=== PATIENT | female | born 1950 | race Caucasian/White ===

== ENCOUNTER → 2017-02-17 | Outpatient (CLI) | payer OTHER ==
[2015-06-29 18:40] VITALS: BP 181/93
[~2017-02-17] MED LIST: ALBU1.25 IH; AMIT10TA PO; BUDE10.2 IH; DICY10CA53 PO; FURO-68 PO; Flexeril; LANS30TA6 PO; LEVO200T5 PO; LEXAPRO20 MG PO; LISI2.5T PO; MAGN400T3 PO; NAPR500T3 PO; NATE120T PO; NITR0.4T22 SL; POTA20PA21 PO; PROAIR HFA8.5 GM IH; PROM6.25 PO
--- NOTE | 2017-02-18 08:36 | KCIC ---
Bilateral digital screening mammograms: Reason for examination: Routine screening. Comparison is made to previous studies dated back to 05/07/2008. The skin and nipples show no abnormalities. No abnormal axillary lymph nodes are seen. The breast parenchyma shows scattered fibroglandular density. (Breast density: Category B.) There appears to be a new 8.3 mm nodular parenchymal density in the upper left breast on oblique view. Recommend further evaluation with coned compression views and ultrasound. There are no other new dominant masses, suspicious calcifications or architectural distortions. Some benign calcifications are present. Impression: New 8.3 mm nodular density seen in the left oblique view superiorly. Recommend further evaluation with additional cone compression views and ultrasound. BI-RADS Category 0: Incomplete. Additional imaging is recommended. "Our facility is accredited by the [employer] Mammography [employer]." This patient's information has been entered into a reminder system for the patient to be notified with the results of her examination and a target date for the next mammogram. Electronically signed by: Kenyetta Hyde MD (02/18/2017 8:32 AM) [id number]
== END | disposition home or self-care (01) ==
LOC: KCIC DEXA 12:19
PROVIDERS: ATTEND Internal Medicine
DX: Z12.31 Encounter for screening mammogram for malignant neoplasm of breast (principal)
CPT/HCPCS: G0202; 77067

== ENCOUNTER → 2017-03-04 | Outpatient (CLI) | payer MEDICARE, OTHER ==
[2015-06-29 18:40] VITALS: BP 181/93
--- NOTE | 2017-03-05 15:46 | KCIC ---
DATE: 03/04/2017 EXAM: DIGITAL DIAGNOSTIC LT, BREAST LEFT HISTORY: Possible abnormality seen on screening COMPARISON: Screening examination 02/17/2017 This study was interpreted with the benefit of Computerized Aided Detection (CAD ). FINDINGS: Breast Density: It is unchanged relative to the screening exam A coned compression view and an ML view were obtained. No definite abnormality is seen on those images. Ultrasound was also performed. Ultrasound was performed targeted to the be resection of the breast from the 9 to the 3:00 positions. No abnormality is seen. The finding on the screening examination likely reflect summation artifact. IMPRESSION: Probable benign findings. A single MLO view of the left breast is suggested in 6 months to further document stability BI-RADS CATEGORY: 3 PROBABLE BENIGN FINDING(S-SHORT INTERVAL FOLLOW-UP SUGGESTED RECOMMENDED FOLLOW-UP: 6M 6 MONTH FOLLOW-UP PQRS compliance statement: Patient information was entered into a reminder system with a target due date 09/01/2017 for the next mammogram. Mammography is a sensitive method for finding small breast cancers, but it does not detect them all and is not a substitute for careful clinical examination. A negative mammogram does not negate a clinically suspicious finding and should not result in delay in biopsying a clinically suspicious abnormality. "Our facility is accredited by the [employer] Mammography Program." ROROD
== END | disposition home or self-care (01) ==
LOC: KCIC MAMMO 09:37
PROVIDERS: ATTEND Internal Medicine
DX: R92.8 Other abnormal and inconclusive findings on diagnostic imaging of breast (principal); R92.2 Inconclusive mammogram
CPT/HCPCS: 76641; G0206; 77065

== ENCOUNTER → 2017-03-16 | Day surgery (SDC) | payer MEDICARE, OTHER ==
[~2017-03-16] MED LIST changes: +ASPI325T8 PO; +Diazepam PO; +FERR-26 PO; +IV RINGERS,LACTATED 1000ML 1,000 ML IV SCH; -NAPR500T3 PO; +NAPR500T4 PO; +OMEP40CA5 PO; +OXYC-327 PO; +PROAIR HFA8.5 GM INH; +PROPOFOL 20 ML IV ONE
--- NOTE | 2017-03-16 08:19 | PDOC1 ---
HISTORY & PHYSICAL H&P Annalee Patiño [id number] 1950 02/10/2017 01:50 PM 06/28 [facility] OUR PATIENTS COME FIRST [address] [place] [address] Ph. [phone] Patient: Annalee Patiño Date of : 1950 Date: 02/10/2017 1:50 PM Visit Type: Consult This 66 year old female presents for H/o colorectal polyp. History of Present Illness: 1. H/o colorectal polyp Prior screening: colonoscopy. Denies risk factors. Pertinent negatives include abdominal pain, change in bowel habits, change in stool caliber, constipation, decreased appetite, diarrhea, melena, nausea, rectal bleeding, vomiting, weight gain and weight loss. Additional information: No family history of colon cancer, No family history of Crohn's/colitis, No NSAID/ASA use and Last colonoscopy 5 yrs ago and had colon polyp. INTAKE COMMENTS: Intake Comments: Nurse Note: the pt is here today to schedule a colonoscopy due to a h/o colon polyps in 2011. PROBLEM LIST: Problem Description Onset Date Acute bacterial sinusitis 07/01/2015 Acquired hypothyroidism 02/12/2010 Hyperlipidemia 02/12/2010 Depressive disorder 02/12/2010 Annual physical exam 11/22/2015 Sleep apnea 02/25/2012 Polyarthralgia 11/28/2015 Primary generalized (osteo)arthritis 11/28/2015 Diabetes mellitus without complication 02/12/2010 Morbid obesity, unspecified obesity type 11/28/2015 Immune thrombocytopenic purpura 03/30/2012 Asthma 04/12/2009 Heartburn 04/12/2009 Benign essential hypertension 04/12/2009 Gastroesophageal reflux disease 04/12/2009 Iron deficiency anemia, unspecified iron deficiency 04/29/2015 Other vitamin B12 deficiency anemia 04/29/2015 PAST MEDICAL/SURGICAL HISTORY (Detailed) Disease/disorder Onset Date Management Date Comments Cholecystectomy 08/11/2013 peptic ulcer Asthma Colonic polyps 10/27/2011 colonoscopy with biopsy 10/27/2011 COPD Coronary artery disease Diabetes Diverticulosis 10/27/2011 Gastric ulcer Hyperlipidemia Hypertension Internal hemorrhoids 10/27/2011 ITP ritaxane small hiatal hernia EGD 11/28/2013 Thyroid disease DIAGNOSTICS HISTORY: Test Ordered Interpretation Result completed COLONOSCOPY AND BIOPSY 10/27/2011 Abnormal Imp: Diverticulosis. Grade 2 Internal hemorrhoids. Polyp, (bx). BX: No patholgic diagnosis. Benign lymphoid aggregate. 10/27/2011 UPPER GI ENDOSCOPY, BIOPSY 11/21/2013 Imp: Erosive gastritis, (bx). Ulcers in the antrum. Small hiatal hernia. BX: No diagnostic abnormality. 11/28/2013 Test Ordered Ordering Comments Modifier COLONOSCOPY AND BIOPSY 10/27/2011 Gastroenterology UPPER GI ENDOSCOPY, BIOPSY 11/21/2013 Not currently . Medications (Active): Started Medication Directions Instruction Stopped 05/07/2015 ALBUTEROL SUL 1.25 MG/3 ML FIDE INHALE THE CONTENTS OF 1 VIAL VIA NEBULIZER EVERY 8 HOURS 02/02/2017 AMITRIPTYLINE HCL 10 MG TAB TAKE [1] TABLET BY MOUTH ONCE DAILY 12/28/2016 BENTYL 10 MG CAPSULE TAKE (1) CAPSULE TWICE DAILY- MORNING AND EVENING 11/20/2016 FERROUS SULFATE 325 MG TABLET TAKE ONE TABLET BY MOUTH 2 TIMES A DAY 07/23/2016 ibuprofen 600 mg tablet take 1 tablet by oral route 3 times every day with food 02/02/2017 LASIX 40MG TABLET TAKE ONE TABLET BY MOUTH DAILY. 10/23/2016 LEVOTHYROXINE 200 MCG TABLET TAKE 1 TABLET BY MOUTH DAILY. 10/23/2016 LEXAPRO 20 MG TABLET TAKE (2) TABLETS BY MOUTH ONCE DAILY. 01/19/2017 LISINOPRIL 5 MG TABLET TAKE [1] TABLET BY MOUTH ONCE DAILY 11/20/2016 MELOXICAM 7.5 MG TABLET TAKE ONE TABLET BY MOUTH 2 TIMES A DAY 02/02/2017 NITRO-DUR 0.4 MG/HR PATCH apply 1 patch by transdermal route every day remove at night for 10-12 hours 07/10/2016 NITROSTAT 0.4 MG TABLET SL TAKE DIRECTED. 01/19/[address] 40 MG CAPSULE TAKE 1 CAPSULE BY MOUTH TWICE DAILY BEFORE A MEAL 12/28/2016 oxycodone-acetaminophen 7.5 mg-325 mg tablet take 1 tablet by oral route every 6 hours as needed 06/11/[address] ER 20 MEQ TABLET TAKE (1) TABLET BY MOUTH TWICE DAILY 09/29/2016 PROAIR HFA 90 MCG INHALER INHALE 2 PUFFS BY MOUTH EVERY 4 HOURS NEEDED. 01/21/2017 STARLIX 120 MG TABLET TAKE (1) TABLET BY MOUTH TWICE DAILY 10/02/2016 Symbicort 160 mcg-4.5 mcg/actuation HFA aerosol inhaler INHALE (2) PUFFS TWICE A DAY 01/13/2017 triamcinolone acetonide 0.5 % topical cream apply by topical route 2 times every day a thin layer to the affected area(s) Allergies: Ingredient Reaction Medication Name Comment HYDROCODONE itching LATEX MEPERIDINE HCL itching, nasuea Demerol TRAMADOL itching TRAMADOL HCL itching Ultram CODEINE hallunciations PENICILLINS rash IODINATED CONTRAST- ORAL AND IV DYE REVIEW OF SYSTEMS System Neg/Pos Details Constitutional Negative Chills, fever, malaise, weight gain and weight loss. ENMT Negative Sore throat. Eyes Negative Double vision. Respiratory Negative Dyspnea and wheezing. Cardio Negative Chest pain and irregular heartbeat/palpitations. GI Positive See HPI. GI Negative Abdominal pain, change in bowel habits, change in stool caliber, constipation, decreased appetite, diarrhea, melena, nausea, see HPI, rectal bleeding and vomiting. Negative Dysuria and hematuria. Endocrine Negative Cold intolerance and heat intolerance. Psych Negative Anxiety. Integumentary Negative Hives and rash. MS Negative Joint pain. Gil/Lymph Negative Easy bleeding and easy bruising. Allergic/Immuno Negative Animals at home and food allergies. VITAL SIGNS Time BP mm/Hg Pulse /min Resp /min Temp F Ht ft Ht in Ht cm Wt lb Wt kg BMI kg/ m2 BSA m2 O2 Sat% 2:13 PM 136/80 87 98.2 5.0 4.00 162.56 261.80 118.750 44.94 95 Time Measured by 2:13 PM [facility] PHYSICAL EXAM: Exam Findings Details Constitutional Normal Well developed. Eyes Normal Conjunctiva - Right: Normal, Left: Normal. Sclera - Right: Normal, Left: Normal. Nasopharynx Normal Lips/teeth/gums - Normal. Neck Exam Normal Inspection - Normal. Thyroid gland - Normal. Respiratory Normal Inspection - Normal. Auscultation - Normal. Cardiovascular Normal Regular rate and rhythm. No murmurs, gallops, or rubs. Vascular Normal Pulses - Carotids: Normal, Femoral: Normal, Dorsalis pedis: Normal. Abdomen Normal Inspection - Normal. Anterior palpation - No guarding. No abdominal tenderness. No hepatic enlargement. No splenic enlargement. No hernia. No Ascites. Skin Normal Inspection - Normal. Extremity Normal No edema. Psychiatric Normal Oriented to time, place, person, and situation. Appropriate mood and effect. Assessment/Plan # Detail Type Description 1. Assessment History of colon polyps (Z86.010). Patient Plan schedule colonoscopy Plan Orders Further diagnostic evaluations ordered today include(s) Colonoscopy to be performed today. She is to schedule a follow-up visit with Vincent Rain MD upon completion of work-up Electronically signed by: Vincent Rain MD 02/10/2017 02:19 PM Document generated by: Vincent Rain 02/10/2017 02:19 PM Navneet Gentile MD, Family Practice; Nicko Belle MD Internal Medicine; Marcus Cardenas MD, Internal Medicine; Dejan Rain MD Internal Medicine; Vincent Rain MD, Gastroenterology; Marbin Thakur MD, Rheumatology, S. Uri Fry, Physical Medicine/Rehab JSofía Oneill APRN ------ 03/16/17 Patient seen and examined. No change in H&P VINCENT RAIN MD Mar 16, 2017 08:19
[2017-03-16 09:35] VITALS: BP 129/62
== END | disposition home or self-care (01) ==
LOC: ENDOS 08:00
PROVIDERS: ATTEND Internal Medicine Gastroenterology
DX: Z09 Encounter for follow-up examination after completed treatment for conditions other than malignant neoplasm (principal); Z87.19 Personal history of other diseases of the digestive system; K64.0 First degree hemorrhoids; K57.30 Diverticulosis of large intestine without perforation or abscess without bleeding; I25.10 Atherosclerotic heart disease of native coronary artery without angina pectoris; E78.00 Pure hypercholesterolemia, unspecified; I10 Essential (primary) hypertension; J44.9 Chronic obstructive pulmonary disease, unspecified; E66.9 Obesity, unspecified; Z68.44 Body mass index [BMI] 60.0-69.9, adult; K21.9 Gastro-esophageal reflux disease without esophagitis; Z86.39 Personal history of other endocrine, nutritional and metabolic disease; E11.9 Type 2 diabetes mellitus without complications; E03.9 Hypothyroidism, unspecified; F41.9 Anxiety disorder, unspecified; F32.9 Major depressive disorder, single episode, unspecified; Z96.653 Presence of artificial knee joint, bilateral; Z98.41 Cataract extraction status, right eye; Z98.42 Cataract extraction status, left eye; Z90.710 Acquired absence of both cervix and uterus; Z87.39 Personal history of other diseases of the musculoskeletal system and connective tissue; Z86.14 Personal history of Methicillin resistant Staphylococcus aureus infection; Z88.0 Allergy status to penicillin; Z88.8 Allergy status to other drugs, medicaments and biological substances; Z91.041 Radiographic dye allergy status; Z91.040 Latex allergy status
CPT/HCPCS: 82962; G0105; J2704

== ENCOUNTER 2017-05-16 15:45 | Inpatient (IN) | payer MEDICARE, OTHER ==
[~2017-05-16] VITALS: Ht 162.6 cm; Wt 118.5 kg
[~2017-05-16 15:45] MED LIST changes: -ASPI325T8 PO; -Diazepam PO; -IV RINGERS,LACTATED 1000ML 1,000 ML IV SCH; -PROPOFOL 20 ML IV ONE
[2017-05-16] MEDS ORDERED: IV NORMAL SALINE 1000ML BAG 1,000 ML IV SCH (16:20)
[2017-05-16] MEDS ORDERED: 0.9 % SODIUM CHLORIDE 10 ML DISP.SYRIN. IV PRN (16:30)
[2017-05-16] MEDS ORDERED: ASPIRIN CHEWABLE 81 MG TABLET. PO ONE (16:45)
[2017-05-16 16:55] LABS: BASO # 0.1 x10^3/uL (0.0-0.2); BASO % 1 % (0-3); EOS % 3 % (0-3); HEMATOCRIT 36.9 % (36.0-47.0); HEMOGLOBIN 12.6 g/dL (12.0-15.5); LYMPH # 2.8 x10^3/uL (1.0-4.8); LYMPH % 29 % (24-48); MEAN CORPUSCULAR HEMOGLOBIN 31 pg (25-35); MEAN CORPUSCULAR HGB CONC 34 g/dL (31-37); MEAN CORPUSCULAR VOLUME 92 fL (79-100); MONO % 8 % (0-9); NEUT % 58 % (31-73); PLATELET COUNT 169 x10^3/uL (140-400); RED BLOOD COUNT 4.02 x10^6/uL (3.50-5.40); RED CELL DISTRIBUTION WIDTH 14.5 % (11.5-14.5); WHITE BLOOD COUNT 9.6 x10^3/uL (4.0-11.0)
--- NOTE | 2017-05-16 17:12 | PHYS DOC ---
Past Medical History Past Medical History: Anxiety, Arthritis, Asthma, Diabetes-Type II, Hypertension, Hypothyroid Additional Past Medical Histor: ITP,RA, Past Surgical History: Cholecystectomy, Hysterectomy, Knee Replacement, Tonsillectomy, Other Additional Past Surgical Histo: HIP REPL Alcohol Use: None Drug Use: None Adult General Chief Complaint Chief Complaint: RAPID HEART RATE HPI HPI She is a pleasant 66-year-old debilitated obese female who just recently underwent hip replacement surgery within the last several weeks who presents today with shortness of breath and palpitations and chest pressure that began 2 days ago. Patient has been feeling well during her daily activities of living as well as her physical therapy postoperatively after receiving hip replacement earlier this week. Her pain is well controlled she has no complaint of leg pain or calf pain or subsequent swelling in that right leg. She had noticed decreased energy as well as shortness of breath and a chest pressure over the center portion of her chest. Although she does have a history of reflux which is also occurring at the same time describing a burning sensation in the center of her chest into her throat and the back of her mouth. She describes some mild soreness in her mouth and her lip which is also discouraging her from eating. She admits to chest pressure today and yesterday is intermittently getting progressively worse and lasting longer than normal. It makes her feel like there is a "" weight on her chest without radiation to her jaw, shoulders or back he does make it her light headed and dizzy at times. She is allergic to IV contrast and has had no other risk factors for pulmonary most other than recent surgery. She is a diabetic with a history of hypertension, hyperlipidemia and paroxysmal atrial fibrillation is only on daily aspirin under the care of Dr. Ibarra seen cardiology in the past Dr. Schrader. Reason she arrives today in our emergency department is that the home health nurse at the nursing facility noted a tachycardia at 130s with routine vital sign collection. Patient but she was not having symptoms at the time. she had her surgery on 28 April. Differential diagnosis: Acute myocardial ischemia, heart failure, cardiac tamponade, bronchospasm, pulmonary embolism, pneumothorax, pulmonary infection i.e. bronchitis or pneumonia, upper airway obstruction, anaphylaxis, aspiration , psychogenic, pulmonary contusion, toxidrome, pneumomediastinum, noncardiogenic pulmonary edema or ARDS, COPD, tuberculosis, cystic fibrosis, asthma, high altitude pulmonary edema, valvular dysfunction, cardiac dysrhythmia , stroke, neuromuscular diseases like myasthenia gravis gravis, ALS, Guillain- Abbott syndrome, metabolic acidosis to include diabetic ketoacidosis, sepsis, and obstructive disorders like massive obesity This differential were considered upon arrival she EKG reviewed at 4:17 PM time of EKG 05/16/2017 demonstrates heart rate of 68 there is a P wave there were QRS there is some sinus abnormality this is normal sinus rhythm with a left axis deviation is RR prime likely associated with incomplete right bundle- branch block with a QRS width of 102 which is normal, MI interval 150 which is normal, QTC of 469 which is borderline long. Review of Systems Review of Systems Constitutional: Denies fever or chills she does describe fatigue Eyes: Denies change in visual acuity, redness, or eye pain [] HENT: Denies nasal congestion or sore throat [] Respiratory: Denies cough does describe some shortness of breath with exertion Cardiovascular: No additional information not addressed in HPI [] GI: Denies abdominal pain, nausea, vomiting, bloody stools or diarrhea [] : Denies dysuria or hematuria [] Musculoskeletal: Denies back pain or but she does have postoperative hip pain which is expected Integument: Denies rash or skin lesions [] Neurologic: Denies headache, focal weakness or sensory changes [] Endocrine: Denies polyuria or polydipsia [] All other systems were reviewed and found to be within normal limits, except as documented in this note. Current Medications Current Medications Current Medications Medications (Trade) Dose Ordered Sig/Simin Start Time Stop Time Status Last Admin Dose Admin Acetaminophen (Tylenol) 650 mg PRN Q4HRS PRN 05/16/17 18:15 05/17/17 18:14 UNV Aspirin (Children'S Aspirin) 324 mg 1X ONCE 05/16/17 16:45 05/16/17 16:46 DC Fentanyl Citrate (Fentanyl 2ml Vial) 50 mcg PRN Q2HR PRN 05/16/17 18:15 05/17/17 18:14 UNV Lorazepam (Ativan) 1 mg 1X ONCE 05/16/17 16:45 05/16/17 16:46 DC 05/16/17 16:44 1 MG Ondansetron HCl (Zofran) 4 mg PRN Q8HRS PRN 05/16/17 18:15 05/17/17 18:14 UNV Rivaroxaban (Xarelto) 10 mg DAILYWSUP 05/16/17 18:05 Sodium Chloride 1,000 ml @ 100 mls/hr Q10H 05/16/17 18:04 05/17/17 18:03 UNV Sodium Chloride (Normal Saline Flush) 10 ml QSHIFT PRN 05/16/17 16:30 05/16/17 16:45 10 ML Allergies Allergies Allergies Coded Allergies Type Severity Reaction Last Updated Verified Iodinated Contrast- Oral and IV Dye Allergy Intermediate 03/16/17 Yes Penicillins Allergy Intermediate 03/16/17 Yes codeine Allergy Intermediate 03/16/17 Yes hydrocodone Allergy Intermediate itching 03/16/17 Yes latex Allergy Intermediate 03/16/17 Yes meperidine Allergy Intermediate 03/16/17 Yes tramadol Allergy Intermediate 03/16/17 Yes Physical Exam Physical Exam Vital signs recorded on the chart patient noted to be mildly tachypnea and hypertensive. Constitutional: Well developed, well nourished, she is morbidly obese but nontoxic in appearance nondiaphoretic not pale in appearance. HENT: Normocephalic, atraumatic, bilateral external ears normal, dry oropharynx with no evidence of candidiasis., no oral exudates, nose normal. [] Neck: Normal range of motion, no tenderness, supple, no stridor. [] Cardiovascular:Heart rate regular rhythm, no murmur does have some tenderness to palpation over the anterior chest wall not exactly reproducible on exam. Lungs & Thorax: Bilateral breath sounds clear to auscultation [] Abdomen: Bowel sounds normal, soft, no masses, no pulsatile masses. Tenderness to palpation of the epigastric region or guarding rebound or organomegaly [] Skin: Warm, dry, no erythema, no rash. [] Back: No tenderness, no CVA tenderness. [] Extremities: No tenderness, no cyanosis, no clubbing, ROM intact, no edema. No Homans sign There is a well-healed incision on the right hip that is mildly erythematous but no evidence of discharge no warmth.[] Neurologic: Alert and oriented X 3, normal motor function, normal sensory function, no focal deficits noted. [] Psychologic: This patient Is mildly anxious.. [] Current Patient Data Vital Signs Vital Signs Date Time Temp Pulse Resp B/P (MAP) Pulse Ox O2 Delivery O2 Flow Rate FiO2 05/16/17 16:10 97.6 70 22 150/70 (96) 98 Room Air 97.6 Lab Values Laboratory Tests Test 05/16/17 16:30 White Blood Count 9.6 x10^3/uL (4.0-11.0) Red Blood Count 4.02 x10^6/uL (3.50-5.40) Hemoglobin 12.6 g/dL (12.0-15.5) Hematocrit 36.9 % (36.0-47.0) Mean Corpuscular Volume 92 fL (79-100) Mean Corpuscular Hemoglobin 31 pg (25-35) Mean Corpuscular Hemoglobin Concent 34 g/dL (31-37) Red Cell Distribution Width 14.5 % (11.5-14.5) Platelet Count 169 x10^3/uL (140-400) Neutrophils (%) (Auto) 58 % (31-73) Lymphocytes (%) (Auto) 29 % (24-48) Monocytes (%) (Auto) 8 % (0-9) Eosinophils (%) (Auto) 3 % (0-3) Basophils (%) (Auto) 1 % (0-3) Neutrophils # (Auto) 5.6 x10^3uL (1.8-7.7) Lymphocytes # (Auto) 2.8 x10^3/uL (1.0-4.8) Monocytes # (Auto) 0.8 x10^3/uL (0.0-1.1) Eosinophils # (Auto) 0.3 x10^3/uL (0.0-0.7) Basophils # (Auto) 0.1 x10^3/uL (0.0-0.2) D-Dimer (Solange) 3.92 ug/mlFEU (0.00-0.50) H Sodium Level 140 mmol/L (136-145) Potassium Level 3.3 mmol/L (3.5-5.1) L Chloride Level 103 mmol/L (98-107) Carbon Dioxide Level 27 mmol/L (21-32) Anion Gap 10 (6-14) Blood Urea Nitrogen 12 mg/dL (7-20) Creatinine 0.9 mg/dL (0.6-1.0) Estimated GFR (Cockcroft-Gault) 62.8 Glucose Level 151 mg/dL (70-99) H Calcium Level 8.6 mg/dL (8.5-10.1) Magnesium Level 1.7 mg/dL (1.8-2.4) L Total Bilirubin 0.4 mg/dL (0.2-1.0) Direct Bilirubin 0.1 mg/dL (0.0-0.2) Aspartate Amino Transferase (AST) 53 U/L (15-37) H Alanine Aminotransferase (ALT) 34 U/L (14-59) Alkaline Phosphatase 122 U/L (46-116) H Creatine Kinase 88 U/L (26-192) Creatine Kinase MB (Mass) < 0.5 ng/mL (0.0-3.6) Creatine Kinase MB Relative Index 0.6 % (0-4) HA-Txc-U-Type Natriuretic Peptide 150 pg/mL (0-124) H Total Protein 7.1 g/dL (6.4-8.2) Albumin 3.0 g/dL (3.4-5.0) L Lipase 158 U/L (73-393) Thyroid Stimulating Hormone (TSH) 3.458 uIU/mL (0.358-3.74) Laboratory Tests 05/16/17 16:30 Laboratory Tests 05/16/17 16:30 EKG EKG [] Radiology/Procedures Radiology/Procedures [] [facility] [address] [place] [address] IMAGING REPORT Signed PATIENT: MILTON COMBS ACCOUNT: [id number] : 1950 LOCATION: ER AGE: 66 SEX: F EXAM STATUS: REG ER ORD. PHYSICIAN: GEO AKHTAR MD REASON: palpitations PROCEDURE: PORTABLE CHEST 1V AP PORTABLE CHEST Clinical Indication: palpitations. Comparison: Two-view chest 08/09/2013. Findings: The cardiomediastinal silhouette is normal. Lungs are clear. There is no pneumothorax. No pleural effusion is appreciated. There is no acute bone abnormality. Degenerative endplate spurring in the thoracic spine. IMPRESSION: No acute cardiopulmonary process. DICTATED and SIGNED BY: CARLOS DE LA O MD DATE: 05/16/17 [id number] CC: GEO AKHTAR MD; MARCUS IBARRA MD ~ Course & Med Decision Making Course & Med Decision Making Pertinent Labs and Imaging studies reviewed. (See chart for details) she presented with shortness of breath approximately 19 days after surgery for hip. She's been relatively debilitated but noted shortness of breath and chest pressure last several days as got progressively worse. Her general risk using the PERC rule and she fails for several reasons Criteria: Age < than 50 years Heart rate < 100 Oxygen saturation > 95% No hemoptysis No estrogen use No prior DVT or PE No unilateral leg swelling No surgery or trauma requiring hospitalization within the prior 4 weeks Respiratory evaluation patient's troponin was negative, primary EKG read upon arrival demonstrated no acute coronary ischemia or right-sided heart strain, patient's chest x-ray reviewed by me read by me AP chest timed 4:32 PM demonstrates no cardiac megaly, no pleural infiltrate, pleural effusion or significant aortic calcification. CBC is normal, CMP is unremarkable, patient's d-dimer is markedly elevated at 3.92 Risk factors for pulmonary most some patient will be set up for VQ scan. It is unfortunate that I will take anywhere from 3-5 hours to get the study completed. Patient's primary care physician was called to discuss case and help with disposition. Patient was amenable to a short evaluation and stay in the hospital to facilitate treatment. at the bedside was very reluctant to take patient home as for a happy to have her admitted this sake of having his direct studies taking care of. Laboratory Tests Test 05/16/17 16:30 White Blood Count 9.6 x10^3/uL (4.0-11.0) Red Blood Count 4.02 x10^6/uL (3.50-5.40) Hemoglobin 12.6 g/dL (12.0-15.5) Hematocrit 36.9 % (36.0-47.0) Mean Corpuscular Volume 92 fL (79-100) Mean Corpuscular Hemoglobin 31 pg (25-35) Mean Corpuscular Hemoglobin Concent 34 g/dL (31-37) Red Cell Distribution Width 14.5 % (11.5-14.5) Platelet Count 169 x10^3/uL (140-400) Neutrophils (%) (Auto) 58 % (31-73) Lymphocytes (%) (Auto) 29 % (24-48) Monocytes (%) (Auto) 8 % (0-9) Eosinophils (%) (Auto) 3 % (0-3) Basophils (%) (Auto) 1 % (0-3) Neutrophils # (Auto) 5.6 x10^3uL (1.8-7.7) Lymphocytes # (Auto) 2.8 x10^3/uL (1.0-4.8) Monocytes # (Auto) 0.8 x10^3/uL (0.0-1.1) Eosinophils # (Auto) 0.3 x10^3/uL (0.0-0.7) Basophils # (Auto) 0.1 x10^3/uL (0.0-0.2) D-Dimer (Solange) 3.92 ug/mlFEU (0.00-0.50) Sodium Level 140 mmol/L (136-145) Chloride Level 103 mmol/L (98-107) Carbon Dioxide Level 27 mmol/L (21-32) Anion Gap 10 (6-14) Blood Urea Nitrogen 12 mg/dL (7-20) Estimated GFR (Cockcroft-Gault) 62.8 Glucose Level 151 mg/dL (70-99) Calcium Level 8.6 mg/dL (8.5-10.1) Total Bilirubin 0.4 mg/dL (0.2-1.0) Direct Bilirubin 0.1 mg/dL (0.0-0.2) Aspartate Amino Transf (AST/SGOT) 53 U/L (15-37) Alkaline Phosphatase 122 U/L (46-116) Creatine Kinase 88 U/L (26-192) Creatine Kinase MB (Mass) < 0.5 ng/mL (0.0-3.6) Creatine Kinase MB Relative Index 0.6 % (0-4) Troponin I Quantitative < 0.017 ng/mL (0.000-0.055) Total Protein 7.1 g/dL (6.4-8.2) Albumin 3.0 g/dL (3.4-5.0) Lipase 158 U/L (73-393) Pool Hand note: Dr. Ibarra Pool Hand called at of the service 6:00 pm Consult called back at 6:00 pm Discussed the case I presented and they agreed with admission. Time of acceptance 6:00 pm he agrees with patient's complaints. History that VQ scan be very appropriate we agreed to start Xaleto and have both pulmonary services and cardiology services evaluate the patient for etiologies of her shortness of breath. Given her is factors for acute coronary syndrome patient also has a heart score of 6 which are require more aggressive management. "I have assessed this patient clinically and believe that their condition requires an admission to the hospital. After consulting the admitting physician about this case, they have asked that I admit this patient to their service as an inpatient based on the clinical presentation and my impression." Dragon Disclaimer Dragon Disclaimer This electronic medical record was generated, in whole or in part, using a voice recognition dictation system. Departure Departure Impression: Primary Impression: Benign essential hypertension Additional Impressions: Diabetes mellitus Dyspnea Disposition: ADMITTED INPATIENT Admitting Physician: Marcus Ibarra Condition: GUARDED Referrals: MARCUS IBARRA MD (PCP) Problem Qualifiers GEO AKHTAR MD May 16, 2017 17:12
[2017-05-16 17:15] LABS: CALCIUM 8.6 mg/dL (8.5-10.1); CREATININE 0.9 mg/dL (0.6-1.0); GFR 62.8; POTASSIUM 3.3 mmol/L (3.5-5.1)
[2017-05-16 17:19] LABS: DIRECT BILIRUBIN 0.1 mg/dL (0.0-0.2); MAGNESIUM 1.7 mg/dL (1.8-2.4); TOTAL BILIRUBIN 0.4 mg/dL (0.2-1.0); TOTAL PROTEIN 7.1 g/dL (6.4-8.2)
[2017-05-16 17:24] LABS: CREATINE KINASE 88 U/L (26-192)
[2017-05-16 17:25] LABS: CKMB MASS < 0.5 ng/mL (0.0-3.6)
[2017-05-16] MEDS ORDERED: RIVAROXABAN 10 MG TABLET. PO SCH (18:05)
[2017-05-16] MEDS ORDERED: ACETAMINOPHEN 325 MG TABLET. PO PRN (18:15)
[2017-05-16] MEDS ORDERED: fentaNYL PF VIAL 100 MCG/2 ML VIAL IV PRN (18:15)
[2017-05-16] MEDS ORDERED: ONDANSETRON PF 4 MG/2 ML VIAL. IV PRN (18:15)
[2017-05-16] MEDS: IV NORMAL SALINE 1000ML BAG 1,000 ML IV SCH (19:27)
[2017-05-16 19:30] VITALS: BP 131/70
--- NOTE | 2017-05-16 20:37 | RAD ---
Ventilation/perfusion lung scan COMPARISON: Chest x-ray May 16, 2017. HISTORY: Shortness of breath. TECHNIQUE: 6 mCi technetium 99m macroaggregated albumin intravenous. 15 mCi xenon-133 inhaled. FINDINGS: Single moderate perfusion defect of the left upper lobe apicoposterior segment on the LPO projection only, it is uncertain if this is matched or mismatched as it isn't apparent on the anterior or posterior perfusion projections, and this is not apparent on the ventilation images which are only anterior and posterior. These findings with a negative chest x-ray are intermediate probability for pulmonary artery embolus using the modified PIOPED criteria. IMPRESSION: Intermediate probability for pulmonary artery embolus. Electronically signed by: Alec Hutchinson MD (05/16/2017 8:34 PM) [facility]
[2017-05-16] MEDS ORDERED: POTASSIUM CHLORIDE 20 MEQ TABLET.ER. PO ONE ×2 (21:30)
[2017-05-16] MEDS ORDERED: ASPI325T8 PO (21:38)
[2017-05-16] MEDS ORDERED: Diazepam PO (21:38)
[2017-05-16 23:00] VITALS: BP 130/63
[2017-05-17 03:00] VITALS: BP 119/58
[2017-05-17] MEDS: IV NORMAL SALINE 1000ML BAG 1,000 ML IV SCH ×2 (06:00→16:27)
--- NOTE | 2017-05-17 06:14 | EKG ---
[facility] [address] [place] [address] Test Date: 2017-05-16 Test Time: 16:17:00 Pat Name: MILTON COMBS Department: Room: 572 1 Gender: F Head Butler: : 1950 Requested By: GEO AKHTAR Order Number: [id number] Reading MD: Russel Everett MD Measurements Intervals [place] Rate: 68 P: 28 TX: 150 QRS: -26 QRSD: 102 T: -6 QT: 436 QTc: 469 Interpretive Statements SINUS RHYTHM LEFTWARD AXIS RBBB NON-SPECIFIC ST/T CHANGES Electronically Signed On 05-18-2017 12:32:59 [employer] PLANT MA[employer]GER by Russel Everett MD
[2017-05-17 06:34] LABS: BASO # 0.1 x10^3/uL (0.0-0.2); BASO % 1 % (0-3); EOS % 4 % (0-3); HEMATOCRIT 34.1 % (36.0-47.0); HEMOGLOBIN 11.2 g/dL (12.0-15.5); LYMPH # 2.5 x10^3/uL (1.0-4.8); LYMPH % 31 % (24-48); MEAN CORPUSCULAR HEMOGLOBIN 31 pg (25-35); MEAN CORPUSCULAR HGB CONC 33 g/dL (31-37); MEAN CORPUSCULAR VOLUME 93 fL (79-100); MONO % 9 % (0-9); NEUT % 55 % (31-73); PLATELET COUNT 137 x10^3/uL (140-400); RED BLOOD COUNT 3.68 x10^6/uL (3.50-5.40)
[2017-05-17 06:37] LABS: CALCIUM 8.2 mg/dL (8.5-10.1); CREATININE 0.8 mg/dL (0.6-1.0)
[2017-05-17 07:15] VITALS: BP 119/66
--- NOTE | 2017-05-17 09:36 | PDOC2 ---
MAHNAZ THOMAS EMPLOYMENT TRAINING SPECIALIST 05/17/17 0936: CARDIAC CONSULT DATE OF CONSULT Date of Consult DATE: 05/17/17 TIME: 09:20 REASON FOR CONSULT Reason for Consult: Chest pain REFERRING PHYSICIAN Referring Physician: Glo SOURCE Source: Chart review, Patient HISTORY OF PRESENT ILLNESS HISTORY OF PRESENT ILLNESS This is a pleasant 66 yo female admitted for complains of fast heart rate, and chest pressure. Reports that she just had a RTHA at [facility]. After surgery she did develop AFIB and was treated in ICU over there. She tolerated the procedure well accdg to her. In the last week she has been having dizzy spells and noted dyspnea more that usual particularly with exertion. Wednesday her home health nurse noted her with fast HR in the 130s and with that she SOA and was having some chest pressure. She was placed on cardizem and ASA for her AFIB. Presently she is doing ok and denies any further recurrence of fast HR. 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 Denies any nausea, jaw or arm pain. Denies any passing out. PAST MEDICAL HISTORY Cardiovascular: AFIB, HTN, Hyperlipidemia Pulmonary: Asthma, COPD (second hand smoking), Other (JOHANA: CPAP not opertational) CENTRAL NERVOUS SYSTEM: Other (No pertinent history) Heme/Onc: Other (ITP) Hepatobiliary: No pertinent hx Psych: Anxiety Musculoskeletal: Osteoarthritis Rheumatologic: No pertinent hx Infectious disease: Other (MRSA) ENT: Other (cataract) Renal/: No pertinent hx Endocrine: Hypothyroidism (acquired) Dermatology: No pertinent hx PAST SURGICAL HISTORY Past Surgical History: Arthroscopy (left wrist), Cholecystectomy, Cataract Removal, Total hip replacement (right), Total knee replacement (bilateral), Hysterectomy, Other (previous portacath) FAMILY HISTORY Family History: Coronary Artery Disease (mother and father), Diabetes (mother) SOCIAL HISTORY Smoke: No ALCOHOL: none Drugs: None Lives: with Family CURRENT MEDICATIONS CURRENT MEDICATIONS Current Medications Medications (Trade) Dose Ordered Sig/Simin Route PRN Reason Start Time Stop Time Status Last Admin Dose Admin Lorazepam (Ativan) 1 mg 1X ONCE IV 05/16/17 16:45 05/16/17 16:46 DC 05/16/17 16:44 Sodium Chloride 1,000 ml @ 1,000 mls/hr Q1H IV 05/16/17 16:20 05/16/17 17:19 DC 05/16/17 16:44 Sodium Chloride (Normal Saline Flush) 10 ml QSHIFT PRN IV AFTER MEDS AND BLOOD DRAWS 05/16/17 16:30 05/16/17 16:45 Rivaroxaban (Xarelto) 10 mg DAILYWSUP PO 05/16/17 18:05 05/16/17 21:10 DC 05/16/17 19:27 Sodium Chloride 1,000 ml @ 100 mls/hr Q10H IV 05/16/17 18:04 05/17/17 18:03 05/17/17 06:00 Enoxaparin Sodium (Lovenox 100mg Syringe) 100 mg 1X ONCE SQ 05/16/17 21:30 05/16/17 21:31 DC 05/16/17 21:30 Potassium Chloride (Klor-Con) 20 meq 1X ONCE PO 05/16/17 21:30 05/16/17 21:31 DC 05/16/17 21:30 Potassium Chloride (Klor-Con) 40 meq 1X ONCE PO 05/16/17 21:30 05/16/17 21:31 DC 05/16/17 21:30 ALLERGIES ALLERGIES: Coded Allergies: Iodinated Contrast- Oral and IV Dye (Verified Allergy, Intermediate, ) Penicillins (Verified Allergy, Intermediate, 03/16/17) codeine (Verified Allergy, Intermediate, 03/16/17) hydrocodone (Verified Allergy, Intermediate, itching, 03/16/17) latex (Verified Allergy, Intermediate, 03/16/17) meperidine (Verified Allergy, Intermediate, 03/16/17) tramadol (Verified Allergy, Intermediate, 03/16/17) ROS Review of System 14 point ROS evaluated with pertinent positives noted per HPI PHYSICAL EXAM General: Alert, Oriented X3, Cooperative, No acute distress HEENT: Atraumatic, Mucous membr. moist/pink Lungs: Clear to auscultation, Normal air movement Heart: Regular rate (SR), Normal S1, Normal S2, Other (2/6 sytolic murmur to LLS border) Extremities: No cyanosis, Other (trace to 1+ bilateral LE pitting edema) Skin: No breakdown, No significant lesion Neuro: Normal speech, Sensation intact Psych/Mental Status: Mental status NL, Mood NL MUSCULOSKELETAL: Osteoarthritic changes both hands VITALS VITALS Vital Signs Date Time Temp Pulse Resp B/P (MAP) Pulse Ox O2 Delivery O2 Flow Rate FiO2 05/17/17 07:15 97.6 74 16 119/66 (83) 96 Room Air 97.6 LABS Lab: Laboratory Tests Test 05/16/17 16:30 05/17/17 00:15 05/17/17 05:50 White Blood Count 9.6 x10^3/uL (4.0-11.0) 8.0 x10^3/uL (4.0-11.0) Red Blood Count 4.02 x10^6/uL (3.50-5.40) 3.68 x10^6/uL (3.50-5.40) Hemoglobin 12.6 g/dL (12.0-15.5) 11.2 g/dL (12.0-15.5) Hematocrit 36.9 % (36.0-47.0) 34.1 % (36.0-47.0) Mean Corpuscular Volume 92 fL (79-100) 93 fL (79-100) Mean Corpuscular Hemoglobin 31 pg (25-35) 31 pg (25-35) Mean Corpuscular Hemoglobin Concent 34 g/dL (31-37) 33 g/dL (31-37) Red Cell Distribution Width 14.5 % (11.5-14.5) 15.0 % (11.5-14.5) Platelet Count 169 x10^3/uL (140-400) 137 x10^3/uL (140-400) Neutrophils (%) (Auto) 58 % (31-73) 55 % (31-73) Lymphocytes (%) (Auto) 29 % (24-48) 31 % (24-48) Monocytes (%) (Auto) 8 % (0-9) 9 % (0-9) Eosinophils (%) (Auto) 3 % (0-3) 4 % (0-3) Basophils (%) (Auto) 1 % (0-3) 1 % (0-3) Neutrophils # (Auto) 5.6 x10^3uL (1.8-7.7) 4.4 x10^3uL (1.8-7.7) Lymphocytes # (Auto) 2.8 x10^3/uL (1.0-4.8) 2.5 x10^3/uL (1.0-4.8) Monocytes # (Auto) 0.8 x10^3/uL (0.0-1.1) 0.7 x10^3/uL (0.0-1.1) Eosinophils # (Auto) 0.3 x10^3/uL (0.0-0.7) 0.3 x10^3/uL (0.0-0.7) Basophils # (Auto) 0.1 x10^3/uL (0.0-0.2) 0.1 x10^3/uL (0.0-0.2) D-Dimer (Solange) 3.92 ug/mlFEU (0.00-0.50) Sodium Level 140 mmol/L (136-145) 141 mmol/L (136-145) Potassium Level 3.3 mmol/L (3.5-5.1) 4.0 mmol/L (3.5-5.1) Chloride Level 103 mmol/L (98-107) 106 mmol/L (98-107) Carbon Dioxide Level 27 mmol/L (21-32) 27 mmol/L (21-32) Anion Gap 10 (6-14) 8 (6-14) Blood Urea Nitrogen 12 mg/dL (7-20) 11 mg/dL (7-20) Creatinine 0.9 mg/dL (0.6-1.0) 0.8 mg/dL (0.6-1.0) Estimated GFR (Cockcroft-Gault) 62.8 72.0 Glucose Level 151 mg/dL (70-99) 113 mg/dL (70-99) Calcium Level 8.6 mg/dL (8.5-10.1) 8.2 mg/dL (8.5-10.1) Magnesium Level 1.7 mg/dL (1.8-2.4) Total Bilirubin 0.4 mg/dL (0.2-1.0) Direct Bilirubin 0.1 mg/dL (0.0-0.2) Aspartate Amino Transf (AST/SGOT) 53 U/L (15-37) Alanine Aminotransferase (ALT/SGPT) 34 U/L (14-59) Alkaline Phosphatase 122 U/L (46-116) Creatine Kinase 88 U/L (26-192) Creatine Kinase MB (Mass) < 0.5 ng/mL (0.0-3.6) Creatine Kinase MB Relative Index 0.6 % (0-4) Troponin I Quantitative < 0.017 ng/mL (0.000-0.055) < 0.017 ng/mL (0.000-0.055) < 0.017 ng/mL (0.000-0.055) MV-Vnw-C-Type Natriuretic Peptide 150 pg/mL (0-124) Total Protein 7.1 g/dL (6.4-8.2) Albumin 3.0 g/dL (3.4-5.0) Lipase 158 U/L (73-393) Thyroid Stimulating Hormone (TSH) 3.458 uIU/mL (0.358-3.74) ASSESSMENT/PLAN ASSESSMENT/PLAN 1. Chest pain: possibly induced by PE and AFIB RVR. Troponin series normal. 2. Tachyarrhythmia: previous new onset AFIB after RTHA. SR. No evidence of AFIB RVR so far. 3. Dyspnea: mainly on exertion 4. Possible PE: intermediate probability with V/Q with recent RTHA. EKG noted with RVH. Likely potentiating symptom as noted above. 5. COPD/JOHANA/Asthma: CPAP not operational 6. HTN: controlled 7. DM2/HLP 8. Hx of ITP 9. IV contrast allergy 10. Hypothyroidism Recommendations 1. Repeat TTE. Venous doppler. Consult pulmonary 2. Defer further anticoagulation to pulmonary 3. Unknown dose for cardizem will place on low dose for now and mornitor rhythm and BP trend 4. Would recommend for event monitor. Problems: ELIDA MARQUEZ MD 05/17/17 3833: CARDIAC CONSULT ALLERGIES ALLERGIES: Coded Allergies: Iodinated Contrast- Oral and IV Dye (Verified Allergy, Intermediate, ) Penicillins (Verified Allergy, Intermediate, 03/16/17) codeine (Verified Allergy, Intermediate, 03/16/17) hydrocodone (Verified Allergy, Intermediate, itching, 03/16/17) latex (Verified Allergy, Intermediate, 03/16/17) meperidine (Verified Allergy, Intermediate, 03/16/17) tramadol (Verified Allergy, Intermediate, 03/16/17) ASSESSMENT/PLAN ASSESSMENT/PLAN Patient seen and examined. Agree with CONDENSER CLEANER's assessment and plan. Chest pain with atypical features. Myocardial infarction has been ruled out. Patient tolerated major surgery recently very well. Doubt ACS. Patient was diagnosed with new onset atrial fibrillation and postop setting recently. Maintaining sinus rhythm. 2-D echo showed LVEF 50%. Pulmonary team consulted for possible PE. Thank you for your consultation. Problems: MAHNAZ THOMAS APRN May 17, 2017 09:36 EILDA MARQUEZ MD May 17, 2017 16:53
[2017-05-17] MEDS: RIVAROXABAN 15 MG TABLET. PO SCH ×2 (10:08→16:27)
--- NOTE | 2017-05-17 10:29 | PDOC ---
Provider Note Provider Note Pt seen.H&P dictated. #[id number] HANNAH IBARRA MD May 17, 2017 10:29
[2017-05-17] MEDS ORDERED: oxyCODONE/APAP 7.5/325 1 TAB TABLET PO PRN (10:30)
[2017-05-17] MEDS ORDERED: NON FORMULARY ITEM (Albuterol Sulfate (Proair Hfa Inhaler) 1 PUFF) INH PRN (10:30)
[2017-05-17] MEDS ORDERED: DEXTROSE 50% 25 GM / 50ML DISP.SYRIN. IV PRN (10:30)
[2017-05-17] MEDS ORDERED: ALBUTEROL SULFATE 2.5 MG/3 ML NEBU. NEB PRN (10:45)
[2017-05-17 10:46] VITALS: BP 122/68
[2017-05-17] MEDS ORDERED: ASPIRIN 325 MG TABLET PO SCH (11:00)
--- NOTE | 2017-05-17 11:04 | CARD ---
APPROVED REPORT EXAM: Two-dimensional and M-mode echocardiogram with Doppler and color Doppler. Other Information Quality : Good Technically limited study due to body habitus. INDICATION Chest Pain Possible Pulmonary Edema 2D DIMENSIONS RVDd2.4 (2.9-3.5cm)Left Atrium(2D)3.3 (1.6-4.0cm) IVSd0.9 (0.7-1.1cm)Aortic Root(2D)3.3 (2.0-3.7cm) LVDd4.8 (3.9-5.9cm)LVOT Diameter2.2 (1.8-2.4cm) PWd0.9 (0.7-1.1cm)LVDs3.1 (2.5-4.0cm) FS (%) 25.0 %SV70.8 ml LVEF(%)55.0 (>50%) Aortic Valve AoV Peak Hector.147.3cm/sAoV VTI28.7cm AO Peak GR.8.7mmHgLVOT VTI 25.33cm AO Mean GR.4mmHgAVA (VTI)3.30cm2 Mitral Valve MV E Htncnwgd120.8cm/sMV DECEL SULR291oj MV A Imwwmgtn73.0cm/sE/A Ratio1.3 TDI Lateral E' P. V11.97cm/sMedial E' P. V9.07cm/s E/Lateral E'9.4E/Medial E'12.4 Tricuspid Valve TR P. Uzxzvntr672gt/sRAP BXITQVAO7juMl TR Peak Gr.65gwHhMGHT26jeUj Pulmonary Vein S1 Mszcziiv61.7cm/sS2 Xlzflbra22.73cm/s D2 Xyupagpa05.7cm/s LEFT VENTRICLE The left ventricle is normal size. There is normal left ventricular wall thickness. Low normal LV sys tolic function. Ejection fraction 50% There is grossly normal segmental wall motion. The anterior and lateral castrejon are not well visualized. Transmitral Doppler flow pattern is Grade II-pseudonormal kim ling dynamics. RIGHT VENTRICLE The right ventricle is normal size. The right ventricular systolic function is normal. ATRIA The left atrium size is normal. The right atrium size is normal. The interatrial septum is intact wit h no evidence for an atrial septal defect or patent foramen ovale as noted on 2-D or Doppler imaging. AORTIC VALVE Not well visualized Doppler and Color Flow revealed no significant aortic regurgitation. There is no significant aortic valvular stenosis. MITRAL VALVE Not well visualized. There is no evidence of mitral valve prolapse. There is no mitral valve stenosis . Doppler and Color Flow revealed no mitral valve regurgitation noted. TRICUSPID VALVE The tricuspid valve is normal in structure and function. Doppler and Color Flow revealed physiologica l tricuspid regurgitation. The PA pressure was estimated at 26 mmHg. There is no tricuspid valve sten osis. PULMONIC VALVE The pulmonary valve is normal in structure and function. Doppler and Color Flow revealed no pulmonic valvular regurgitation. There is no pulmonic valvular stenosis. GREAT VESSELS The aortic root is normal in size. The ascending aorta is normal in size. The IVC is normal in size a nd collapses >50% with inspiration. PERICARDIAL EFFUSION There is no evidence of significant pericardial effusion. Critical Notification Critical Value: No <Conclusion> Low normal LV systolic function. Ejection fraction 50% There is grossly normal segmental wall motion. The anterior and lateral castrejon are not well visualized . Technically difficult study.
--- NOTE | 2017-05-17 11:09 | HP ---
ADMIT DATE: 05/16/2017 DATE OF ADMISSION: 05/16/2017. ATTENDING PHYSICIAN: Dr. Cardenas. REASON FOR ADMISSION TO THE HOSPITAL: Shortness of breath, possible pulmonary embolism. The patient had a recent right hip replacement 3 weeks ago at [facility]. HISTORY OF PRESENT ILLNESS: The patient is a 66-year-old female who was having palpitation, short of breath, was seen by home health nurse. She was referred to have a heart rate of 130, was sent to the Emergency Room for evaluation. THE PATIENT IS ALLERGIC TO CONTRAST, had a VQ scan shows intermediate possibility for pulmonary embolism, was given a dose of Lovenox and started on Xarelto. PAST MEDICAL HISTORY: She has a history of chronic obstructive pulmonary disease and also ITP, hypertension, recently when she had a right hip replacement 3-4 weeks ago, at [facility], she was found to have paroxysmal atrial fibrillation, was started on aspirin and Cardizem as per the patient. Past medical history of paroxysmal atrial fibrillation, hypertension, hyperlipidemia, hypothyroidism, chronic obstructive pulmonary disease, obstructive sleep apnea on CPAP, ITP in the past, arthritis, cataract surgery, hypothyroidism. PAST SURGICAL HISTORY: Recently had a right hip replacement, bilateral knee replacements, cataract surgery, gallbladder surgery. FAMILY HISTORY: CAD in the mother and father, diabetes in the mother. SOCIAL HISTORY: Denies smoking, but she worked with [employer] smoke. No alcohol or drug abuse. ALLERGIES: TO CONTRAST. SHE HAS HIVES, PENICILLIN, CODEINE, HYDROCODONE, LATEX, DEMEROL AND TRAMADOL. MEDICATIONS AT HOME: Amitriptyline 10 mg daily, aspirin 325 daily, Bentyl 10 mg twice a day, iron 325 daily, Lasix 40 mg daily, Imdur 30 mg daily, magnesium 400 mg twice a day, naproxen 500 mg twice a day, nitroglycerin sublingual, oxycodone 7.5 q. 6 hours, albuterol nebulizer q. 8 hours, ProAir inhaler, Symbicort twice a day, Lexapro 20 mg daily, levothyroxine 200 mcg daily, mg twice a day, omeprazole 40 mg daily, potassium 20 mEq daily, diazepam p.r.n. REVIEW OF SYSTEMS: CARDIAC: Has some palpitation. Short of breath. GASTROINTESTINAL: No nausea or vomiting. NEUROLOGICAL: No weakness. The rest of the 14-system was reviewed and negative. PHYSICAL EXAMINATION: GENERAL: The patient under distress. VITAL SIGNS: Temperature 97, pulse 70, respirations 20, blood pressure 150/70, 98% on room air. HEENT: Head is atraumatic. Pupils equal. Oral cavity: No congestion. NECK: Scar of prior surgery. CHEST: Symmetrical. Central obesity. CARDIOVASCULAR: S1, S2. LUNGS: No wheezing. ABDOMEN: Soft, obese. No mass palpable. EXTERNAL GENITALIA: No [place]. RECTAL: Deferred. EXTREMITIES: No calf tenderness or edema. He has bilateral knee replacements, has surgical scar in the right hip from replacement. Nontender. NEUROLOGIC: No focal noted. LABORATORY DATA: Shows a white cell count of 9, hemoglobin 12, platelets 169. Electrolytes show sodium 140, potassium 3.3, chloride 103, bicarbonate 27, BUN 12, creatinine 0.9, glucose 151, magnesium 1.1. LFTs were normal and D-dimer was 3.9, was high. Chest x-ray negative and a V/Q scan is intermediate possibility for pulmonary artery embolism. FINAL IMPRESSION: 1. Shortness of breath with palpitations. V/Q scan is moderate for pulmonary embolism. 2. Recent right hip replacement 3 weeks ago. 3. Paroxysmal atrial fibrillation. 4. Hypertension. 5. Hyperlipidemia. 6. Diabetes. 7. Hypothyroidism. 8. Obstructive sleep apnea, on CPAP. PLAN: At this time, was admit to hospital, will get a venous Doppler, Pt was given a dose of Lovenox will start on po Xarelto from tomorrow. Cardiology is consulted. We will have pulmonary consult . ALLERGY TO CONTRAST. Awaiting for the pulmonary to see if we can proceed with arteriogram.ECHO and may be out pt holter. HANNAH CARDENAS MD DR: NAZANIN/katie JOB#: [id number] / [id number] Hannah Moreno MD MTDD
[2017-05-17] MEDS: INSULIN ASPART 300 UNITS/3 ML INSULN.PEN SQ SCH ×2 (12:00→17:00)
[2017-05-17] MEDS ORDERED: ANTI-COAG MONITOR BY PHARMACY. MC PRN (12:30)
[2017-05-17] MEDS: FUROSEMIDE 40 MG TABLET. PO SCH (13:18)
[2017-05-17] MEDS: MAGNESIUM OXIDE 400 MG TABLET PO SCH ×2 (13:19→20:11)
[2017-05-17] MEDS: LEVOTHYROXINE 100 MCG TABLET PO SCH (13:19)
[2017-05-17] MEDS: NAPROXEN 500 MG TABLET PO SCH ×2 (13:19→20:11)
[2017-05-17] MEDS: DICYCLOMINE HCL 10 MG CAPSULE PO SCH ×2 (13:19→20:10)
[2017-05-17] MEDS: CITALOPRAM 20 MG TABLET. PO SCH (13:19)
[2017-05-17] MEDS: FERROUS SULFATE 325 MG TABLET. PO SCH (13:20)
[2017-05-17] MEDS: LANSOPRAZOLE 30 MG TAB.RAP.DR PO SCH (13:20)
[2017-05-17] MEDS ORDERED: NON FORMULARY ITEM (Albuterol Sulfate (Albuterol Sulfate Neb Soln) 1.25 MG) IH SCH (14:00)
[2017-05-17] MEDS: ALBUTEROL SULFATE 2.5 MG/3 ML NEBU. NEB SCH ×4 (14:00→23:30)
[2017-05-17 15:20] VITALS: BP 125/78
[2017-05-17] MEDS: REPAGLINIDE 0.5 MG TABLET PO SCH (16:27)
--- NOTE | 2017-05-17 18:11 | PDOC ---
PULMONARY PROGRESS NOTES Vitals Vital Signs Date Time Temp Pulse Resp B/P (MAP) Pulse Ox O2 Delivery O2 Flow Rate FiO2 05/17/17 15:20 98.6 69 12 125/78 (94) 94 Room Air 98.6 Labs Laboratory Tests Test 05/16/17 16:30 05/16/17 21:30 05/17/17 00:15 05/17/17 05:50 White Blood Count 9.6 x10^3/uL (4.0-11.0) 8.0 x10^3/uL (4.0-11.0) Red Blood Count 4.02 x10^6/uL (3.50-5.40) 3.68 x10^6/uL (3.50-5.40) Hemoglobin 12.6 g/dL (12.0-15.5) 11.2 g/dL (12.0-15.5) Hematocrit 36.9 % (36.0-47.0) 34.1 % (36.0-47.0) Mean Corpuscular Volume 92 fL (79-100) 93 fL (79-100) Mean Corpuscular Hemoglobin 31 pg (25-35) 31 pg (25-35) Mean Corpuscular Hemoglobin Concent 34 g/dL (31-37) 33 g/dL (31-37) Red Cell Distribution Width 14.5 % (11.5-14.5) 15.0 % (11.5-14.5) Platelet Count 169 x10^3/uL (140-400) 137 x10^3/uL (140-400) Neutrophils (%) (Auto) 58 % (31-73) 55 % (31-73) Lymphocytes (%) (Auto) 29 % (24-48) 31 % (24-48) Monocytes (%) (Auto) 8 % (0-9) 9 % (0-9) Eosinophils (%) (Auto) 3 % (0-3) 4 % (0-3) Basophils (%) (Auto) 1 % (0-3) 1 % (0-3) Neutrophils # (Auto) 5.6 x10^3uL (1.8-7.7) 4.4 x10^3uL (1.8-7.7) Lymphocytes # (Auto) 2.8 x10^3/uL (1.0-4.8) 2.5 x10^3/uL (1.0-4.8) Monocytes # (Auto) 0.8 x10^3/uL (0.0-1.1) 0.7 x10^3/uL (0.0-1.1) Eosinophils # (Auto) 0.3 x10^3/uL (0.0-0.7) 0.3 x10^3/uL (0.0-0.7) Basophils # (Auto) 0.1 x10^3/uL (0.0-0.2) 0.1 x10^3/uL (0.0-0.2) D-Dimer (Solange) 3.92 ug/mlFEU (0.00-0.50) Sodium Level 140 mmol/L (136-145) 141 mmol/L (136-145) Potassium Level 3.3 mmol/L (3.5-5.1) 4.0 mmol/L (3.5-5.1) Chloride Level 103 mmol/L (98-107) 106 mmol/L (98-107) Carbon Dioxide Level 27 mmol/L (21-32) 27 mmol/L (21-32) Anion Gap 10 (6-14) 8 (6-14) Blood Urea Nitrogen 12 mg/dL (7-20) 11 mg/dL (7-20) Creatinine 0.9 mg/dL (0.6-1.0) 0.8 mg/dL (0.6-1.0) Estimated GFR (Cockcroft-Gault) 62.8 72.0 Glucose Level 151 mg/dL (70-99) 113 mg/dL (70-99) Calcium Level 8.6 mg/dL (8.5-10.1) 8.2 mg/dL (8.5-10.1) Magnesium Level 1.7 mg/dL (1.8-2.4) Total Bilirubin 0.4 mg/dL (0.2-1.0) Direct Bilirubin 0.1 mg/dL (0.0-0.2) Aspartate Amino Transf (AST/SGOT) 53 U/L (15-37) Alanine Aminotransferase (ALT/SGPT) 34 U/L (14-59) Alkaline Phosphatase 122 U/L (46-116) Creatine Kinase 88 U/L (26-192) Creatine Kinase MB (Mass) < 0.5 ng/mL (0.0-3.6) Creatine Kinase MB Relative Index 0.6 % (0-4) Troponin I Quantitative < 0.017 ng/mL (0.000-0.055) < 0.017 ng/mL (0.000-0.055) < 0.017 ng/mL (0.000-0.055) LS-Evx-W-Type Natriuretic Peptide 150 pg/mL (0-124) Total Protein 7.1 g/dL (6.4-8.2) Albumin 3.0 g/dL (3.4-5.0) Lipase 158 U/L (73-393) Thyroid Stimulating Hormone (TSH) 3.458 uIU/mL (0.358-3.74) Nasal Screen MRSA (PCR) Negative (Negative) Test 05/17/17 16:57 Glucose (Fingerstick) 107 mg/dL (70-99) Laboratory Tests Test 05/16/17 21:30 05/17/17 00:15 05/17/17 05:50 05/17/17 16:57 Nasal Screen MRSA (PCR) Negative (Negative) Troponin I Quantitative < 0.017 ng/mL (0.000-0.055) < 0.017 ng/mL (0.000-0.055) White Blood Count 8.0 x10^3/uL (4.0-11.0) Red Blood Count 3.68 x10^6/uL (3.50-5.40) Hemoglobin 11.2 g/dL (12.0-15.5) Hematocrit 34.1 % (36.0-47.0) Mean Corpuscular Volume 93 fL (79-100) Mean Corpuscular Hemoglobin 31 pg (25-35) Mean Corpuscular Hemoglobin Concent 33 g/dL (31-37) Red Cell Distribution Width 15.0 % (11.5-14.5) Platelet Count 137 x10^3/uL (140-400) Neutrophils (%) (Auto) 55 % (31-73) Lymphocytes (%) (Auto) 31 % (24-48) Monocytes (%) (Auto) 9 % (0-9) Eosinophils (%) (Auto) 4 % (0-3) Basophils (%) (Auto) 1 % (0-3) Neutrophils # (Auto) 4.4 x10^3uL (1.8-7.7) Lymphocytes # (Auto) 2.5 x10^3/uL (1.0-4.8) Monocytes # (Auto) 0.7 x10^3/uL (0.0-1.1) Eosinophils # (Auto) 0.3 x10^3/uL (0.0-0.7) Basophils # (Auto) 0.1 x10^3/uL (0.0-0.2) Sodium Level 141 mmol/L (136-145) Potassium Level 4.0 mmol/L (3.5-5.1) Chloride Level 106 mmol/L (98-107) Carbon Dioxide Level 27 mmol/L (21-32) Anion Gap 8 (6-14) Blood Urea Nitrogen 11 mg/dL (7-20) Creatinine 0.8 mg/dL (0.6-1.0) Estimated GFR (Cockcroft-Gault) 72.0 Glucose Level 113 mg/dL (70-99) Calcium Level 8.2 mg/dL (8.5-10.1) Glucose (Fingerstick) 107 mg/dL (70-99) Medications Active Scripts Medications Dose Route/Sig Max Daily Dose Days Date Category [Diazepam] Mg PO DAILY 05/16/17 Reported Aspirin 325 Mg Tablet 1 Tab PO DAILY 05/16/17 Reported Ferrous Sulfate 325 Mg Tablet 1 Tab PO DAILY 03/16/17 Reported Percocet 7.5-325 Mg Tablet (Oxycodone/Acetaminophen) 1 Each Tablet 1 Tab PO PRN Q6HRS PRN 03/16/17 Reported Proair Hfa Inhaler (Albuterol Sulfate) 8.5 Gm Hfa.aer.ad 1 Puff INH PRN Q6HRS PRN 03/16/17 Reported Starlix (Nateglinide) 120 Mg Tablet 120 Mg PO BID 03/16/17 Reported Omeprazole 40 Mg Capsule.dr 40 Mg PO DAILY 03/16/17 Reported NITROGLYCERIN SubLingual (Nitroglycerin) 0.4 Mg Tab.subl 0.4 Mg SL PRN 08/09/13 Reported Symbicort 160-4.5 Mcg Inhaler (Budesonide/Formoterol Fumarate) 10.2 Gm Hfa.aer.ad 4.5 Gm IH 08/09/13 Reported Prevacid (Lansoprazole) 30 Mg Tab.rap.dr 30 Mg PO DAILYAC 08/09/13 Reported Amitriptyline Hcl 10 Mg Tablet 10 Mg PO DAILY 08/09/13 Reported Lexapro (Escitalopram Oxalate) 20 Mg Tablet 20 Mg PO DAILY 08/09/13 Reported Potassium Chloride Packet (Potassium Chloride) 20 Meq Packet 20 Meq PO 08/09/13 Reported Levothyroxine Sodium 200 Mcg Tablet 200 Mcg PO DAILY 08/09/13 Reported Lasix (Furosemide) 40 Mg Tablet 40 Mg PO DAILY 08/09/13 Reported Bentyl (Dicyclomine Hcl) 10 Mg Capsule 10 Mg PO BID 08/09/13 Reported Naproxen 500 Mg Tablet 500 Mg PO BID 08/09/13 Reported Albuterol Sulfate Neb Soln (Albuterol Sulfate) 1.25 Mg/3 Ml Vial.neb 1.25 Mg IH Q8HRS 08/09/13 Reported Magnesium Oxide 400 Mg Tablet 400 Mg PO BID 08/09/13 Reported Impression . DICTATED WILL PROCEED WITH CT FOR PE PROTOCOL PREMEDICATE PT CONTINUE THE SAME FOR NOW STEFAN BUCKNER MD May 17, 2017 18:11
[2017-05-17] MEDS ORDERED: predniSONE 10 MG TABLET PO ONE (18:15)
[2017-05-17 19:15] VITALS: BP 122/46
[2017-05-17] MEDS: predniSONE 10 MG TABLET PO SCH (19:33)
[2017-05-17] MEDS: AMITRIPTYLINE HCL 10 MG TABLET. PO SCH (20:11)
[2017-05-17] MEDS ORDERED: diphenhydrAMINE HCL 25 MG CAPSULE PO ONE ×2 (21:00)
[2017-05-17] MEDS ORDERED: FAMOTIDINE 20 MG TABLET. PO ONE (21:00)
--- NOTE | 2017-05-17 22:28 | CONS ---
DATE OF CONSULTATION: 05/17/2017 ATTENDING PHYSICIAN: Marcus Cardenas MD REASON FOR CONSULTATION: The patient seen in pulmonary consultation at the request of Dr. Cardenas for abnormal V/Q scan and an elevated D-dimer. HISTORY OF PRESENT ILLNESS: The patient is a 66-year-old that had recent hip surgery 3 weeks ago. Her home health nurse found her to have tachycardia. She was also complaining of being short of breath, some chest tightness. She was brought to the Emergency Department, workup with a V/Q scan, V/Q was indeterminant. I was asked to see her in consultation. She also had a positive D-dimer. The patient had venous Dopplers today, which were negative. There is no prior history of DVT or pulmonary embolism. She denies syncope or any syncopal episode. She denies fever, chills or night sweats. PAST MEDICAL HISTORY: Chronic COPD, previous ITP, hypertension, recent hip replacement, paroxysmal AFib, hyperlipidemia, hypothyroidism, obstructive sleep apnea, currently on CPAP at home. PAST SURGICAL HISTORY: Status post cataract, recent hip surgery, bilateral knee replacement, cataract surgery, cholecystectomy. FAMILY HISTORY: Mother with coronary artery disease, diabetes. SOCIAL HISTORY: She denies any current use of smoke. No history of alcoholism. ALLERGIES: To CONTRAST. She had an allergic reaction mostly a rash around the neck after studying her thyroid. No history of hives or respiratory distress with contrast. She is also intolerant to PENICILLIN, CODEINE, HYDROCODONE, LATEX, DEMEROL, AND TRAMADOL. MEDICATIONS: List was reviewed. Please see the MRAD. REVIEW OF SYSTEMS: As indicated above, otherwise, a 10-point system was reviewed and negative. CONSTITUTIONAL: No fever or chills. EYES: No changes in visual acuity. HEENT: No nasal congestion or sore throat. RESPIRATORY: As indicated above. CARDIOVASCULAR: Paroxysmal AFib in the past. GASTROINTESTINAL: No nausea, vomiting, diarrhea. GENITOURINARY: No dysuria or frequency. MUSCULOSKELETAL: Denies any localized joint aches or muscle pain. SKIN: No new skin rashes. NEUROLOGIC: No headaches, diplopia or blurred vision. PHYSICAL EXAMINATION: VITAL SIGNS: Stable. O2 saturation currently on 2 liters was greater than 92% on room air. HEENT: Eyes, the sclerae were nonicteric. NECK: Jugular venous distention was not elevated. No lymphadenopathy. CHEST: Full expansion. LUNGS: Adequate airway flow, no wheezes. CARDIOVASCULAR: Regular rate and rhythm with S1, S2, no S3. ABDOMEN: Soft, nontender, nondistended. EXTREMITIES: No clubbing, cyanosis or edema. NEUROLOGIC: The patient was awake, alert, following commands. A detailed neuro exam was not performed. LABORATORY DATA: Reviewed. White count was normal. Hemoglobin and hematocrit noted. Electrolytes were noted. V/Q scan as indicated above intermediate probability. Lower extremity venous Dopplers were negative. Chest x-ray was reviewed. IMPRESSION: 1. Subacute onset of shortness of air associated with tachycardia. 2. Tachycardia, possibly paroxysmal atrial fibrillation. 3. Chronic obstructive pulmonary disease. 4. Recent hip replacement. 5. Obstructive sleep apnea. 6. Sleep apnea. 7. Hypothyroidism. DISCUSSION: I reviewed the above diagnostic study. My clinical suspicion for PE is low to moderate considering the patient's recent hip replacement and positive D-dimer, we will proceed with CT angiogram for PE protocol. She will be premedicated for her allergic reaction to CONTRAST DYE. For now, we will continue current anticoagulation. She is currently receiving Xarelto. I do appreciate the privilege in sharing in the patient's care. STEFAN BUCKNER MD DR: SERENITY/katie JOB#: [id number] / [id number]
[2017-05-17 23:15] VITALS: BP 119/68
[2017-05-18] MEDS: predniSONE 10 MG TABLET PO SCH ×2 (00:04→05:55)
[2017-05-18 03:15] VITALS: BP 133/76
[2017-05-18] MEDS ORDERED: diphenhydrAMINE HCL 25 MG CAPSULE PO PRN (06:00)
[2017-05-18] MEDS ORDERED: FAMOTIDINE 20 MG TABLET. PO PRN (06:00)
[2017-05-18 07:00] VITALS: BP 111/65
[2017-05-18] MEDS: ALBUTEROL SULFATE 2.5 MG/3 ML NEBU. NEB SCH ×3 (07:21→23:23)
[2017-05-18] MEDS: LANSOPRAZOLE 30 MG TAB.RAP.DR PO SCH (07:30)
[2017-05-18] MEDS: INSULIN ASPART 300 UNITS/3 ML INSULN.PEN SQ SCH ×3 (08:00→17:24)
[2017-05-18] MEDS: LEVOTHYROXINE 100 MCG TABLET PO SCH (08:27)
[2017-05-18] MEDS ORDERED: IOHEXOL 300 MG/ML 100ML VIAL. IV ONE (08:45)
[2017-05-18] MEDS ORDERED: CONTRAST GIVEN MC PRN (08:45)
[2017-05-18] MEDS ORDERED: NAPROXEN 500 MG TABLET PO PRN (09:00)
[2017-05-18] MEDS ORDERED: NON FORMULARY ITEM (Omeprazole 40 MG) PO SCH (09:00)
--- NOTE | 2017-05-18 09:17 | RAD ---
APPROVED REPORT Bilateral Lower Extremity Venous Study for DVT Patient Location: IN-PATIENT Indications Lower Extremity Pain: Pulmonary Embolism Shortness of breath Risk Factors Post OP Bed Rest Doppler Evaluation (Right) CFV (R): Spontaneous POP (R):Spontaneous Doppler Evaluation (Left) CFV (L):Spontaneous POP (L):Spontaneous Findings Grayscale images of the bilateral lower extremity deep veins reveal compressibility of the common fem oral, femoral and popliteal veins. The below-knee veins were not well visualized but appear to show s pontaneous color Doppler flow. Spectral waveforms in the bilateral common, superficial femoral and popliteal veins show diminished b ut appropriate respirophasic waveforms. No evidence of deep venous thrombosis. Critical Notification Critical Value: No <Conclusion> Negative for DVT in the bilateral lower extremity veins.
--- NOTE | 2017-05-18 09:51 | PDOC ---
PROGRESS NOTES Subjective Subjective shaky after breathing treatment Objective Objective Vital Signs Date Time Temp Pulse Resp B/P (MAP) Pulse Ox O2 Delivery O2 Flow Rate FiO2 05/18/17 07:21 Room Air 05/18/17 07:00 97.5 75 20 111/65 (80) 98 97.5 Intake and Output 05/18/17 07:00 Intake Total 5200 ml Balance 5200 ml Intake Oral 5200 ml # Voids 2 # Bowel Movements 1 Physical Exam Heart: Regular rate (SR), Normal S1, Normal S2, Other (2/6 sytolic murmur to LLS border) Extremities: No cyanosis, Other (trace to 1+ bilateral LE pitting edema) General: Alert, Oriented X3, Cooperative, No acute distress HEENT: Atraumatic, Mucous membr. moist/pink Lungs: Clear to auscultation, Normal air movement MUSCULOSKELETAL: Osteoarthritic changes both hands Neuro: Normal speech, Sensation intact Psych/Mental Status: Mental status NL, Mood NL Skin: No breakdown, No significant lesion Diagnosis Problem List Problems Medical Problems: (1) Dyspnea Status: Acute Assessment Assessment Problems Medical Problems: (1) Dyspnea Status: Acute FINAL IMPRESSION: 1. Shortness of breath with palpitations. V/Q scan is moderate for pulmonary embolism. 2. Recent right hip replacement 3 weeks ago. 3. Paroxysmal atrial fibrillation. 4. Hypertension. 5. Hyperlipidemia. 6. Diabetes. 7. Hypothyroidism. 8. Obstructive sleep apnea, on CPAP. PLAN: Venous Doppler neg for DVT. ECHO 50 % ejf CTA today, after premedicating for allergy to contrst. d/c home tomorrow Xeralto 15 mg po bid Problems: Plan Plan of Care Problems Medical Problems: (1) Dyspnea Status: Acute Comment Review of Relevant I have reviewed the following items tamika (where applicable) has been applied. Labs Laboratory Tests Test 05/17/17 16:57 05/17/17 20:41 05/18/17 07:26 Glucose (Fingerstick) 107 mg/dL (70-99) 152 mg/dL (70-99) 190 mg/dL (70-99) Medications Current Medications Albuterol Sulfate (Ventolin Neb Soln) 2.5 mg PRN Q6HRS PRN NEB SHORTNESS OF BREATH; Start 05/17/17 at 10:45 Albuterol Sulfate (Ventolin Neb Soln) 2.5 mg Q8HRS NEB Last administered on 07:21; Start 05/17/17 at 14:00 Amitriptyline HCl (Elavil) 10 mg QHS PO Last administered on 05/17/17 20:11; Start 05/17/17 at 21:00 Aspirin (Maricruz Aspirin) 325 mg DAILY PO Last administered on 05/17/17 13:18; Start 05/17/17 at 11:00; Stop 05/18/17 at 09:00; Status DC Citalopram Hydrobromide (CeleXA) 40 mg DAILY PO Last administered on 13:19; Start 05/17/17 at 11:00 Dextrose (Dextrose 50%-Water Syringe) 12.5 gm PRN Q15MIN PRN IV SEE COMMENTS; Start 05/17/17 at 10:30 Dicyclomine HCl (Bentyl) 10 mg BID PO Last administered on 05/17/17 20:10; Start 05/17/17 at 11:00 Diltiazem HCl (Cardizem 24hr Cd) 120 mg DAILY PO Last administered on 10:13; Start 05/17/17 at 10:00 Diphenhydramine HCl (Benadryl) 25 mg 1X ONCE PO Last administered on 20:11; Start 05/17/17 at 21:00; Stop 05/17/17 at 21:01; Status DC Diphenhydramine HCl (Benadryl) 25 mg OC PROC PRN PO PRE-PROCEDURE Last administered on 05/18/17 08:27; Start 05/18/17 at 06:00; Stop 05/19/17 at 05 :59 Diphenhydramine HCl (Benadryl) 50 mg 1X ONCE PO ; Start 05/17/17 at 21:00; Stop 05/17/17 at 21:01; Status UNV Famotidine (Pepcid) 20 mg 1X ONCE PO Last administered on 05/17/17 20:11; Start 05/17/17 at 21:00; Stop 05/17/17 at 21:01; Status DC Famotidine (Pepcid) 20 mg OC PROC PRN PO PRE-PROCEDURE Last administered on 08:27; Start 05/18/17 at 06:00; Stop 05/19/17 at 05:59 Ferrous Sulfate (Feosol) 325 mg DAILY PO Last administered on 05/17/17 13:20 ; Start 05/17/17 at 11:00 Furosemide (Lasix) 40 mg DAILY PO Last administered on 05/17/17 13:18; Start 05/17/17 at 11:00 Info (Anti-Coagulation Monitoring By Pharmacy) 1 each PRN DAILY PRN MC SEE COMMENTS Last administered on 05/17/17 12:27; Start 05/17/17 at 12:30 Info (Do NOT chart on this entry -- for MONITORING) 1 each PRN DAILY PRN MC SEE COMMENTS; Start 05/18/17 at 08:45; Stop 05/20/17 at 08:44 Insulin Aspart (NovoLOG) 0-7 UNITS TIDWMEALS SQ ; Start 05/17/17 at 12:00 Iohexol (Omnipaque 300 Mg/ml) 75 ml 1X ONCE IV Last administered on 08:57; Start 05/18/17 at 08:45; Stop 05/18/17 at 08:46; Status DC Lansoprazole (Prevacid) 30 mg DAILYAC PO Last administered on 05/17/17 13:20 ; Start 05/17/17 at 11:00 Levothyroxine Sodium (Synthroid) 100 mcg DAILY07 PO Last administered on 08:27; Start 05/17/17 at 11:00 Magnesium Oxide (Magnesium Oxide) 400 mg BID PO Last administered on 20:11; Start 05/17/17 at 11:00 Naproxen (Naprosyn) 500 mg BID PO Last administered on 05/17/17 20:11; Start 05/17/17 at 11:00; Stop 05/18/17 at 09:00; Status DC Naproxen (Naprosyn) 500 mg PRN BID PRN PO BREAKTHROUGH PAIN; Start 05/18/17 at 09:00 Non-Formulary Medication 1 puff PRN Q6HRS PRN INH SHORTNESS OF BREATH; Start 05/17/17 at 10:30; Status UNV Non-Formulary Medication 1.25 mg Q8HRS IH ; Start 05/17/17 at 14:00; Status UNV Non-Formulary Medication 40 mg DAILY PO ; Start 05/18/17 at 09:00; Status UNV Oxycodone/ Acetaminophen (Percocet 7.5/ 325) 1 tab PRN Q6HRS PRN PO PAIN; Start 05/17/17 at 10:30 Prednisone (Prednisone) 40 mg 1X ONCE PO ; Start 05/17/17 at 18:15; Stop at 18:16; Status UNV Prednisone (Prednisone) 50 mg Q6H PO Last administered on 05/18/17 05:55; Start 05/17/17 at 18:00; Stop 05/18/17 at 06:01; Status DC Repaglinide (Prandin) 1 mg BIDAC PO Last administered on 05/17/17 16:27; Start 05/17/17 at 16:30 Vitals/I & O Vital Sign - Last 24 Hours 05/17/17 05/17/17 05/17/17 05/17/17 10:13 10:46 15:10 15:20 Temp 97.9 98.6 97.9 98.6 Pulse 74 76 69 Resp 15 12 B/P (MAP) 119/66 122/68 (86) 125/78 (94) Pulse Ox 96 94 94 O2 Delivery Room Air Room Air Room Air 05/17/17 05/17/17 05/17/17 05/17/17 19:15 20:00 23:15 23:30 Temp 97.9 98.1 97.9 98.1 Pulse 80 73 B/P (MAP) 122/46 (71) 119/68 (85) Pulse Ox 94 95 O2 Delivery Room Air Room Air Room Air Room Air 05/18/17 05/18/17 05/18/17 03:15 07:00 07:21 Temp 97.7 97.5 97.7 97.5 Pulse 73 75 Resp 20 B/P (MAP) 133/76 (95) 111/65 (80) Pulse Ox 95 98 O2 Delivery Room Air Room Air Room Air Intake and Output 05/17/17 05/17/17 05/18/17 15:00 23:00 07:00 Intake Total 600 ml 4500 ml 100 ml Balance 600 ml 4500 ml 100 ml HANNAH IBARRA MD May 18, 2017 09:51
--- NOTE | 2017-05-18 09:53 | PDOC ---
PULMONARY PROGRESS NOTES Subjective PT NOT MORE SOA HR UNDER CONTROL Vitals Vital Signs Date Time Temp Pulse Resp B/P (MAP) Pulse Ox O2 Delivery O2 Flow Rate FiO2 05/18/17 07:21 Room Air 05/18/17 07:00 97.5 75 20 111/65 (80) 98 97.5 General: Alert Lungs: Clear Cardiovascular: S1, S2 Abdomen: Soft, Non-tender Neuro Exam: Alert Extremities: No Edema Skin: Warm Labs Laboratory Tests Test 05/16/17 16:30 05/16/17 21:30 05/17/17 00:15 05/17/17 05:50 White Blood Count 9.6 x10^3/uL (4.0-11.0) 8.0 x10^3/uL (4.0-11.0) Red Blood Count 4.02 x10^6/uL (3.50-5.40) 3.68 x10^6/uL (3.50-5.40) Hemoglobin 12.6 g/dL (12.0-15.5) 11.2 g/dL (12.0-15.5) Hematocrit 36.9 % (36.0-47.0) 34.1 % (36.0-47.0) Mean Corpuscular Volume 92 fL (79-100) 93 fL (79-100) Mean Corpuscular Hemoglobin 31 pg (25-35) 31 pg (25-35) Mean Corpuscular Hemoglobin Concent 34 g/dL (31-37) 33 g/dL (31-37) Red Cell Distribution Width 14.5 % (11.5-14.5) 15.0 % (11.5-14.5) Platelet Count 169 x10^3/uL (140-400) 137 x10^3/uL (140-400) Neutrophils (%) (Auto) 58 % (31-73) 55 % (31-73) Lymphocytes (%) (Auto) 29 % (24-48) 31 % (24-48) Monocytes (%) (Auto) 8 % (0-9) 9 % (0-9) Eosinophils (%) (Auto) 3 % (0-3) 4 % (0-3) Basophils (%) (Auto) 1 % (0-3) 1 % (0-3) Neutrophils # (Auto) 5.6 x10^3uL (1.8-7.7) 4.4 x10^3uL (1.8-7.7) Lymphocytes # (Auto) 2.8 x10^3/uL (1.0-4.8) 2.5 x10^3/uL (1.0-4.8) Monocytes # (Auto) 0.8 x10^3/uL (0.0-1.1) 0.7 x10^3/uL (0.0-1.1) Eosinophils # (Auto) 0.3 x10^3/uL (0.0-0.7) 0.3 x10^3/uL (0.0-0.7) Basophils # (Auto) 0.1 x10^3/uL (0.0-0.2) 0.1 x10^3/uL (0.0-0.2) D-Dimer (Solange) 3.92 ug/mlFEU (0.00-0.50) Sodium Level 140 mmol/L (136-145) 141 mmol/L (136-145) Potassium Level 3.3 mmol/L (3.5-5.1) 4.0 mmol/L (3.5-5.1) Chloride Level 103 mmol/L (98-107) 106 mmol/L (98-107) Carbon Dioxide Level 27 mmol/L (21-32) 27 mmol/L (21-32) Anion Gap 10 (6-14) 8 (6-14) Blood Urea Nitrogen 12 mg/dL (7-20) 11 mg/dL (7-20) Creatinine 0.9 mg/dL (0.6-1.0) 0.8 mg/dL (0.6-1.0) Estimated GFR (Cockcroft-Gault) 62.8 72.0 Glucose Level 151 mg/dL (70-99) 113 mg/dL (70-99) Calcium Level 8.6 mg/dL (8.5-10.1) 8.2 mg/dL (8.5-10.1) Magnesium Level 1.7 mg/dL (1.8-2.4) Total Bilirubin 0.4 mg/dL (0.2-1.0) Direct Bilirubin 0.1 mg/dL (0.0-0.2) Aspartate Amino Transf (AST/SGOT) 53 U/L (15-37) Alanine Aminotransferase (ALT/SGPT) 34 U/L (14-59) Alkaline Phosphatase 122 U/L (46-116) Creatine Kinase 88 U/L (26-192) Creatine Kinase MB (Mass) < 0.5 ng/mL (0.0-3.6) Creatine Kinase MB Relative Index 0.6 % (0-4) Troponin I Quantitative < 0.017 ng/mL (0.000-0.055) < 0.017 ng/mL (0.000-0.055) < 0.017 ng/mL (0.000-0.055) LL-Krp-K-Type Natriuretic Peptide 150 pg/mL (0-124) Total Protein 7.1 g/dL (6.4-8.2) Albumin 3.0 g/dL (3.4-5.0) Lipase 158 U/L (73-393) Thyroid Stimulating Hormone (TSH) 3.458 uIU/mL (0.358-3.74) Nasal Screen MRSA (PCR) Negative (Negative) Test 05/17/17 16:57 05/17/17 20:41 05/18/17 07:26 Glucose (Fingerstick) 107 mg/dL (70-99) 152 mg/dL (70-99) 190 mg/dL (70-99) Laboratory Tests Test 05/17/17 16:57 05/17/17 20:41 05/18/17 07:26 Glucose (Fingerstick) 107 mg/dL (70-99) 152 mg/dL (70-99) 190 mg/dL (70-99) Medications Active Scripts Medications Dose Route/Sig Max Daily Dose Days Date Category [Diazepam] Mg PO DAILY 05/16/17 Reported Aspirin 325 Mg Tablet 1 Tab PO DAILY 05/16/17 Reported Ferrous Sulfate 325 Mg Tablet 1 Tab PO DAILY 03/16/17 Reported Percocet 7.5-325 Mg Tablet (Oxycodone/Acetaminophen) 1 Each Tablet 1 Tab PO PRN Q6HRS PRN 03/16/17 Reported Proair Hfa Inhaler (Albuterol Sulfate) 8.5 Gm Hfa.aer.ad 1 Puff INH PRN Q6HRS PRN 03/16/17 Reported Starlix (Nateglinide) 120 Mg Tablet 120 Mg PO BID 03/16/17 Reported Omeprazole 40 Mg Capsule.dr 40 Mg PO DAILY 03/16/17 Reported NITROGLYCERIN SubLingual (Nitroglycerin) 0.4 Mg Tab.subl 0.4 Mg SL PRN 08/09/13 Reported Symbicort 160-4.5 Mcg Inhaler (Budesonide/Formoterol Fumarate) 10.2 Gm Hfa.aer.ad 4.5 Gm IH 08/09/13 Reported Prevacid (Lansoprazole) 30 Mg Tab.rap.dr 30 Mg PO DAILYAC 08/09/13 Reported Amitriptyline Hcl 10 Mg Tablet 10 Mg PO DAILY 08/09/13 Reported Lexapro (Escitalopram Oxalate) 20 Mg Tablet 20 Mg PO DAILY 08/09/13 Reported Potassium Chloride Packet (Potassium Chloride) 20 Meq Packet 20 Meq PO 08/09/13 Reported Levothyroxine Sodium 200 Mcg Tablet 200 Mcg PO DAILY 08/09/13 Reported Lasix (Furosemide) 40 Mg Tablet 40 Mg PO DAILY 08/09/13 Reported Bentyl (Dicyclomine Hcl) 10 Mg Capsule 10 Mg PO BID 08/09/13 Reported Naproxen 500 Mg Tablet 500 Mg PO BID 08/09/13 Reported Albuterol Sulfate Neb Soln (Albuterol Sulfate) 1.25 Mg/3 Ml Vial.neb 1.25 Mg IH Q8HRS 08/09/13 Reported Magnesium Oxide 400 Mg Tablet 400 Mg PO BID 08/09/13 Reported Impression . 1. Subacute onset of shortness of air associated with tachycardia. 2. Tachycardia, possibly paroxysmal atrial fibrillation. 3. Chronic obstructive pulmonary disease. 4. Recent hip replacement. 5. Obstructive sleep apnea. 6. Sleep apnea. 7. Hypothyroidism. Plan . PT TO UNDERGO CT ANGIO TODAY CONTINUE THE SAME FOR NOW D/W STEFAN SANDOVAL MD May 18, 2017 09:53
--- NOTE | 2017-05-18 10:06 | RAD ---
EXAM: CT ANGIOGRAPHY OF THE CHEST WITH AND WITHOUT INTRAVENOUS CONTRAST. HISTORY: Shortness of breath, chest pain. TECHNIQUE: Computed tomographic angiography of the chest was performed before and after the intravenous administration of 75 mL Omnipaque 300. 3-D maximum intensity projections were also performed. The patient was premedicated given the history of contrast allergy. COMPARISON: None. FINDINGS: Images of the upper abdomen reveal changes of cholecystectomy. There is a small hiatal hernia. Bone windows reveal no suspicious lesions. Hemangioma is noted in the mid thoracic spine. No pulmonary emboli are identified. There is no aortic dissection or aneurysm. There are no pathologically enlarged mediastinal or axillary lymph nodes. Calcified mediastinal lymph nodes are likely secondary to old granulomatous disease. There is no pleural or pericardial effusion. The heart is not enlarged. The right subclavian and internal jugular veins are small but patent. There is venous collateralization along the right upper chest wall. The right axillary vein and brachiocephalic vein are patent. Lung windows reveal scattered air trapping inferiorly in the right upper lobe and in both bases. There are no infiltrates. IMPRESSION: 1. No pulmonary embolism. 2. Scattered air trapping. Correlate for small airways disease. 3. The right subclavian and internal jugular veins are small but patent. There is some venous collateralization along the right upper chest wall. *One or more of the following individualized dose reduction techniques were utilized for this examination: 1. Automated exposure control. 2. Adjustment of the mA and/or kV according to patient size. 3. Use of iterative reconstruction technique.
[2017-05-18] MEDS: DICYCLOMINE HCL 10 MG CAPSULE PO SCH ×2 (10:20→20:20)
[2017-05-18] MEDS: REPAGLINIDE 0.5 MG TABLET PO SCH ×2 (10:20→17:13)
[2017-05-18] MEDS: FUROSEMIDE 40 MG TABLET. PO SCH (10:20)
[2017-05-18] MEDS: CITALOPRAM 20 MG TABLET. PO SCH (10:20)
[2017-05-18] MEDS: FERROUS SULFATE 325 MG TABLET. PO SCH (10:21)
[2017-05-18] MEDS: RIVAROXABAN 15 MG TABLET. PO SCH ×2 (10:21→17:13)
[2017-05-18] MEDS: MAGNESIUM OXIDE 400 MG TABLET PO SCH ×2 (10:21→20:20)
--- NOTE | 2017-05-18 10:57 | PDOC ---
CARDIO Progress Notes Date and Time Date of Service 05/18/17 Time of Evaluation 1050 Subjective Subjective: No Chest Pain, No Palpitations, Other (breathing better, having mild LIANG) Vitals Vitals Vital Signs Date Time Temp Pulse Resp B/P (MAP) Pulse Ox O2 Delivery O2 Flow Rate FiO2 05/18/17 10:20 75 111/65 05/18/17 07:21 Room Air 05/18/17 07:00 97.5 20 98 97.5 Weight Weight [ ] Input and Output Intake and Output Intake and Output 05/18/17 07:00 Intake Total 5200 ml Balance 5200 ml Intake Oral 5200 ml # Voids 2 # Bowel Movements 1 Laboratory Labs Laboratory Tests Test 05/17/17 16:57 05/17/17 20:41 05/18/17 07:26 Glucose (Fingerstick) 107 mg/dL (70-99) 152 mg/dL (70-99) 190 mg/dL (70-99) Physical Exam HEENT: Neck Supple W Full Motion Chest: Symmetric LUNGS: Other (diminished bases ) Heart: S1S2, RRR, other (2/6 systolic murmur ) Abdomen: Soft N/T Extremities: Other (trace LE edema ) Neurology: alert, oriented, follow commands Assessment Assessment 1. Chest pain, atypical. Troponin series normal. LVEF 50%; no WMA noted 2. Tachyarrhythmia: previous new onset AFIB after RTHA. Presently maintaining SR. On Xarelto for stroke prophylaxis 3. Dyspnea: mainly on exertion. CTA negative for PE. Continued treatment as per pulmonary 4. COPD/JOHANA/Asthma: CPAP not operational 5. HTN: controlled 6. DM2/HLP 7. Hx of ITP 8. Hypothyroidism MONA DOWNS APRN May 18, 2017 10:57
[2017-05-18 11:00] VITALS: BP 145/77
[2017-05-18 15:00] VITALS: BP 140/70
[2017-05-18 19:00] VITALS: BP 126/81
[2017-05-18] MEDS: AMITRIPTYLINE HCL 10 MG TABLET. PO SCH (20:20)
[2017-05-18 22:39] VITALS: BP 134/78
[2017-05-19 03:00] VITALS: BP 124/72
[2017-05-19 07:00] VITALS: BP 117/60
[2017-05-19] MEDS: ALBUTEROL SULFATE 2.5 MG/3 ML NEBU. NEB SCH (07:41)
[2017-05-19] MEDS: REPAGLINIDE 0.5 MG TABLET PO SCH (07:42)
[2017-05-19] MEDS: LEVOTHYROXINE 100 MCG TABLET PO SCH (07:42)
[2017-05-19] MEDS: LANSOPRAZOLE 30 MG TAB.RAP.DR PO SCH (07:42)
[2017-05-19] MEDS: INSULIN ASPART 300 UNITS/3 ML INSULN.PEN SQ SCH ×2 (08:00→12:00)
[2017-05-19] MEDS: FUROSEMIDE 40 MG TABLET. PO SCH (08:52)
[2017-05-19] MEDS: DICYCLOMINE HCL 10 MG CAPSULE PO SCH (08:52)
[2017-05-19] MEDS: RIVAROXABAN 15 MG TABLET. PO SCH (08:52)
[2017-05-19] MEDS: MAGNESIUM OXIDE 400 MG TABLET PO SCH (08:52)
[2017-05-19] MEDS: FERROUS SULFATE 325 MG TABLET. PO SCH (08:53)
[2017-05-19] MEDS: CITALOPRAM 20 MG TABLET. PO SCH (08:56)
--- NOTE | 2017-05-19 09:24 | PDOC ---
PROGRESS NOTES Subjective Subjective pt feels better Objective Objective Vital Signs Date Time Temp Pulse Resp B/P (MAP) Pulse Ox O2 Delivery O2 Flow Rate FiO2 05/19/17 08:52 88 117/60 05/19/17 07:42 95 Room Air 05/19/17 07:00 98.0 20 98.0 Intake and Output 05/19/17 07:00 Intake Total 1620 ml Balance 1620 ml Intake Oral 1620 ml # Voids 7 Physical Exam Heart: Regular rate (SR), Normal S1, Normal S2, Other (2/6 sytolic murmur to LLS border) Extremities: No cyanosis, Other (trace to 1+ bilateral LE pitting edema) General: Alert, Oriented X3, Cooperative, No acute distress HEENT: Atraumatic, Mucous membr. moist/pink Lungs: Clear to auscultation, Normal air movement MUSCULOSKELETAL: Osteoarthritic changes both hands Neuro: Normal speech, Sensation intact Psych/Mental Status: Mental status NL, Mood NL Skin: No breakdown, No significant lesion Diagnosis Problem List Problems Medical Problems: (1) Dyspnea Status: Acute Assessment Assessment Problems Medical Problems: (1) Dyspnea Status: Acute FINAL IMPRESSION: 1. Shortness of breath with palpitations. V/Q scan is moderate for pulmonary embolism.CTA -neg for PE 2. Recent right hip replacement 3 weeks ago. 3. Paroxysmal atrial fibrillation. 4. Hypertension. 5. Hyperlipidemia. 6. Diabetes. 7. Hypothyroidism. 8. Obstructive sleep apnea, on CPAP. PLAN: d/c home today CTA-ve for PE. Venous Doppler neg for DVT. ECHO 50 % ejf holter as out pt stop Xeralto . Problems: Plan Plan of Care Problems Medical Problems: (1) Dyspnea Status: Acute Comment Review of Relevant I have reviewed the following items tamika (where applicable) has been applied. Labs Laboratory Tests Test 05/18/17 11:24 05/18/17 16:47 05/18/17 20:11 05/19/17 07:57 Glucose (Fingerstick) 208 mg/dL (70-99) 233 mg/dL (70-99) 195 mg/dL (70-99) 129 mg/dL (70-99) Vitals/I & O Vital Sign - Last 24 Hours 05/18/17 05/18/17 05/18/17 05/18/17 10:20 11:00 15:00 15:33 Temp 97.6 97.6 97.6 97.6 Pulse 75 84 84 Resp 24 20 B/P (MAP) 111/65 145/77 (99) 140/70 (93) Pulse Ox 98 98 O2 Delivery Room Air Room Air 05/18/17 05/18/17 05/18/17 05/18/17 19:00 20:00 22:39 23:25 Temp 98.3 98.3 98.3 98.3 Pulse 78 74 Resp 17 17 B/P (MAP) 126/81 (96) 134/78 (96) Pulse Ox 94 95 97 O2 Delivery Room Air Room Air Room Air Room Air 05/19/17 05/19/17 05/19/17 05/19/17 03:00 07:00 07:42 08:52 Temp 98.3 98.0 98.3 98.0 Pulse 71 88 88 Resp 16 20 B/P (MAP) 124/72 (89) 117/60 (79) 117/60 Pulse Ox 95 98 95 O2 Delivery Room Air Room Air Room Air Intake and Output 05/18/17 05/18/17 05/19/17 15:00 23:00 07:00 Intake Total 140 ml 1180 ml 300 ml Balance 140 ml 1180 ml 300 ml HANNAH IBARRA MD May 19, 2017 09:24
--- NOTE | 2017-05-19 09:30 | PDOC ---
Provider Note Provider Note Discharge summary dictated. #[id number] HANNAH IBARRA MD May 19, 2017 09:30
--- NOTE | 2017-05-19 09:44 | DS ---
DATE OF DISCHARGE: 05/19/2017 REASON FOR ADMISSION TO THE HOSPITAL: 1. Shortness of breath. 2. Palpitations. CONSULTATIONS: 1. Dr. Segura. 2. Dr. Everett. PROCEDURES DONE: 1. Echocardiogram. 2. V/Q scan. 3. Venous Doppler. 4. CT angiogram of the chest. COMPLICATIONS NOTED: None. HOSPITAL COURSE: The patient is a 66-year-old female. The patient had a recent right hip surgery at [facility] 3 weeks ago. She was having palpitations, short of breath, came to the Emergency Room. Her heart rate was normal when she came in and she was having shortness of breath, but she was not hypoxic. Chest x-ray was negative. D-dimer was positive, so the patient had a V/Q scan, showed intermediate probability. The patient was given a dose of Lovenox and started on Xarelto. The patient was seen by Pulmonology. The patient has ALLERGY TO IV CONTRAST. The patient was premedicated and CT angiogram was done, which came back negative for pulmonary embolism. The patient had a venous Doppler negative for deep venous thrombosis. Echocardiogram shows 50-60% ejection fraction, and the patient was discharged home. FINAL DIAGNOSES: 1. Shortness of breath, probably multifactorial, could be secondary to paroxysmal atrial fibrillation, negative for pulmonary embolism. 2. Recent right hip surgery, replacement at [facility]. No evidence of deep venous thrombosis or pulmonary embolus. 3. Diabetes. 4. Hypertension. 5. Small airway disease. 6. Obesity. 7. Hypothyroidism. DISPOSITION: Home. The patient is recommended outpatient Holter for paroxysmal atrial fibrillation. She is going to see Dr. Moreno, her tour operator, in 1 week. HANNAH IBARRA MD DR: NAZANIN/katie JOB#: [id number] / [id number] SHAKIRA Trejo MD
[2017-05-19 11:00] VITALS: BP 136/58
== END 2017-05-19 13:00 | disposition home or self-care (01) | DRG 309 ==
LOC: ER 15:45 → 5 SOUTH 18:10
PROVIDERS: ADMIT Internal Medicine; ATTEND Internal Medicine
DX: I48.0 Paroxysmal atrial fibrillation (principal); D69.3 Immune thrombocytopenic purpura; Z68.41 Body mass index [BMI] 40.0-44.9, adult; J44.9 Chronic obstructive pulmonary disease, unspecified; E03.9 Hypothyroidism, unspecified; E11.9 Type 2 diabetes mellitus without complications; E66.9 Obesity, unspecified; E78.5 Hyperlipidemia, unspecified; Z77.22 Contact with and (suspected) exposure to environmental tobacco smoke (acute) (chronic); R00.0 Tachycardia, unspecified; F41.9 Anxiety disorder, unspecified; G47.33 Obstructive sleep apnea (adult) (pediatric); Z96.653 Presence of artificial knee joint, bilateral; M19.90 Unspecified osteoarthritis, unspecified site; Z96.641 Presence of right artificial hip joint; I10 Essential (primary) hypertension; K21.9 Gastro-esophageal reflux disease without esophagitis; Z79.82 Long term (current) use of aspirin; Z82.49 Family history of ischemic heart disease and other diseases of the circulatory system; Z83.3 Family history of diabetes mellitus; Z90.710 Acquired absence of both cervix and uterus; Z91.041 Radiographic dye allergy status; Z98.49 Cataract extraction status, unspecified eye; Z88.0 Allergy status to penicillin; Z88.8 Allergy status to other drugs, medicaments and biological substances; Z88.6 Allergy status to analgesic agent; Z91.040 Latex allergy status; Z90.49 Acquired absence of other specified parts of digestive tract
CPT/HCPCS: 36415; 71010; 71275; 78582; 80048; 80076; 82553; 82962; 83690; 83735; 83880; 84443; 84484; 85025; 85379; 87641; 93005; 93306; 93970; 94640; 94760; 96361; 96374; A9540; A9558; J1650; J1815; J2060; J7030; J7512; J7613; Q0163; Q9967; 99285-25

== ENCOUNTER → 2018-02-01 | Day surgery (SDC) | payer MEDICARE, OTHER ==
[~2018-02-01] MED LIST changes: -ALBU1.25 IH; -AMIT10TA PO; -BUDE10.2 IH; -DICY10CA53 PO; -FERR-26 PO; -FURO-68 PO; -Flexeril; +IV RINGERS,LACTATED 1000ML 1,000 ML IV; -LANS30TA6 PO; -LEVO200T5 PO; -LEXAPRO20 MG PO; +LIDOCAINE 1% PF 2 ML VIAL. ID; +LIDOCAINE 2% PF Vial for OR 5 ML VIAL.; -LISI2.5T PO; -MAGN400T3 PO; +MIDAZOLAM HCL/PF 2 MG/2 ML VIAL. IV; -NAPR500T4 PO; -NATE120T PO; -NITR0.4T22 SL; -OMEP40CA5 PO; -OXYC-327 PO; -POTA20PA21 PO; -PROAIR HFA8.5 GM IH; -PROAIR HFA8.5 GM INH; -PROM6.25 PO; +PROPOFOL 20 ML IV; +fentaNYL PF VIAL 100 MCG/2 ML VIAL IV
[2018-02-01] MEDS: IV RINGERS,LACTATED 1000ML 1,000 ML IV (11:05)
== END | disposition home or self-care (01) ==
LOC: SURG 10:45
DX: K29.50 Unspecified chronic gastritis without bleeding (principal); K25.9 Gastric ulcer, unspecified as acute or chronic, without hemorrhage or perforation; K31.89 Other diseases of stomach and duodenum; D50.0 Iron deficiency anemia secondary to blood loss (chronic); Z86.010 Personal history of colon polyps; J44.9 Chronic obstructive pulmonary disease, unspecified; I25.10 Atherosclerotic heart disease of native coronary artery without angina pectoris; E11.9 Type 2 diabetes mellitus without complications; I10 Essential (primary) hypertension; Z90.49 Acquired absence of other specified parts of digestive tract; Z87.11 Personal history of peptic ulcer disease; Z98.890 Other specified postprocedural states; Z79.899 Other long term (current) drug therapy; Z88.0 Allergy status to penicillin; Z88.8 Allergy status to other drugs, medicaments and biological substances; Z88.5 Allergy status to narcotic agent; Z91.041 Radiographic dye allergy status; Z91.040 Latex allergy status; Z88.6 Allergy status to analgesic agent; Z98.42 Cataract extraction status, left eye; Z98.41 Cataract extraction status, right eye; Z96.1 Presence of intraocular lens; E78.00 Pure hypercholesterolemia, unspecified; I48.91 Unspecified atrial fibrillation; E66.9 Obesity, unspecified; Z68.39 Body mass index [BMI] 39.0-39.9, adult; K21.9 Gastro-esophageal reflux disease without esophagitis; Z90.79 Acquired absence of other genital organ(s); Z90.710 Acquired absence of both cervix and uterus; Z90.721 Acquired absence of ovaries, unilateral; M19.90 Unspecified osteoarthritis, unspecified site; E89.0 Postprocedural hypothyroidism; F41.9 Anxiety disorder, unspecified; F32.9 Major depressive disorder, single episode, unspecified; Z86.14 Personal history of Methicillin resistant Staphylococcus aureus infection; Z79.82 Long term (current) use of aspirin; Z96.653 Presence of artificial knee joint, bilateral; Z79.84 Long term (current) use of oral hypoglycemic drugs
CPT/HCPCS: 43239; 88305; 88342; J2001; J2704

== ENCOUNTER → 2018-05-05 | Outpatient (CLI) | payer OTHER ==
[2018-02-01 11:35] VITALS: BP 140/71
[~2018-05-05] MED LIST changes: +ALBU1.25 IH; +AMIT10TA PO; +ASPI-630 PO; +ASPI325T8 PO; +BREO ELLIPTA 21 EACH IH; +BUDE10.2 IH; +DICY10CA3 PO; +DICY10CA53 PO; +DILT90TA PO; +DOCU-150 PO; +Diazepam PO; +FERR325T14 PO; +FLEC100T PO; +FURO-68 PO; +Flexeril; -IV RINGERS,LACTATED 1000ML 1,000 ML IV; +LANS30TA6 PO; +LEVO200T5 PO; +LEXAPRO20 MG PO; -LIDOCAINE 1% PF 2 ML VIAL. ID; -LIDOCAINE 2% PF Vial for OR 5 ML VIAL.; +LISI2.5T PO; +MAGN400C PO; +MAGN400T3 PO; -MIDAZOLAM HCL/PF 2 MG/2 ML VIAL. IV; +NAPR-514 PO; +NATE120T PO; +NATE120T2 PO; +NITR0.4T22 SL; +OMEP40CA5 PO; +OXYC-327 PO; +OXYC5CAP PO; +POLY17PO29 PO; +POTA20PA21 PO; +PROAIR HFA8.5 GM IH; +PROAIR HFA8.5 GM INH; +PROM6.257 PO; -PROPOFOL 20 ML IV; +RIVA20TA2 PO; +VENTOLIN HFA18 GM INH; -fentaNYL PF VIAL 100 MCG/2 ML VIAL IV
--- NOTE | 2018-05-05 12:23 | KCIC ---
Bilateral diagnostic digital mammograms with 3D Tomosynthesis: Reason for examination: Follow-up nodular density in the left breast. Comparison is made to previous studies dated 02/17/2017 and 06/12/2015. Bilateral mammograms in CC and oblique projections were obtained with 2-D imaging and 3-D tomosynthesis imaging on a Siemens Inspiration unit and reviewed on the workstation. Interpretation was made with the benefit of CAD. The skin and nipples show no abnormalities. No abnormal axillary lymph nodes are seen. The breast parenchyma shows scattered fibroglandular density. (Breast density: Category B.) There continue to be small parenchymal densities in the 9:00 B position of the right breast and probably at the central left breast. There are no new dominant masses, suspicious calcifications or architectural distortions. A few scattered benign calcifications are present. Impression: Continued presence of small parenchymal densities without change. No suspicious abnormalities evident. Recommend routine follow-up mammograms. BI-RADS category 2: Benign. "Our facility is accredited by the [employer] Mammography Program." This patient's information has been entered into a reminder system for the patient to be notified with the results of her examination and a target date for the next mammogram. Electronically signed by: Kenyetta Hyde MD (05/05/2018 12:20 PM) [id number]
== END | disposition home or self-care (01) ==
LOC: KCIC MAMMO 10:09
PROVIDERS: ATTEND Internal Medicine
DX: R92.2 Inconclusive mammogram (principal); R92.1 Mammographic calcification found on diagnostic imaging of breast
CPT/HCPCS: 77066; G0279; 77062

== ENCOUNTER → 2018-07-29 | Outpatient (CLI) | payer OTHER ==
[2018-02-01 11:35] VITALS: BP 140/71
[~2018-07-29] MED LIST changes: +ALBU2.5V8 IH; +ALBU2.5V8 INH; +IOHEXOL 300 MG/ML 100ML VIAL. IV ONE; -OXYC-327 PO; +OXYC1TAB19 PO; -PROAIR HFA8.5 GM IH; -PROAIR HFA8.5 GM INH
--- NOTE | 2018-07-29 15:14 | KCIC ---
CT ABDOMEN PELVIS WO/W dated 07/29/2018 11:00 AM Indication: Gross hematuria. Incontinence. History of prior bladder surgery.. Comparison: 08/09/2013. Technique: Contiguous axial imaging of the abdomen and pelvis performed with and without the administration of 95 cc Omnipaque 300. Study was performed as a dedicated CT urogram with and without contrast using nephrographic phase and imaging and delayed imaging. One or more of the following individualized dose reduction techniques were utilized for this examination: 1. Automated exposure control 2. Adjustment of the mA and/or kV according to patient size 3. Use of iterative reconstruction technique Findings: Precontrast imaging shows no evidence of calcific renal or ureteral stone.. No hydronephrosis. Nephrographic phase imaging shows symmetric bilateral renal enhancement without hydronephrosis. No focal renal mass. Delayed imaging shows symmetric filling of the bilateral collecting systems. The ureters are normal in course and caliber. No apparent mucosal lesion or stricture. Urinary bladder is incompletely distended. There is no apparent bladder wall thickening or mucosal lesion. Limited images of lung bases are clear. Heart size within normal limits. No pleural or pericardial effusion. Liver, spleen, pancreas, adrenal glands unremarkable. The gallbladder is surgically absent. Unopacified GI tract normal in caliber and contour. No focal bowel wall thickening. No inflammatory stranding in the mesentery. There are a few scattered diverticula throughout the colon. No paracolonic inflammatory changes. Appendix normal in caliber. Small umbilical hernia containing only fat. Images of pelvis show surgical absence of the uterus. No free pelvic fluid or pelvic lymphadenopathy. Beam Liu artifact from right hip prosthesis limits evaluation. Bone windows show no acute findings. Multilevel spondylosis. Impression: 1. No evidence of renal stone, renal mass or hydronephrosis. No apparent mucosal lesion. 2. Diverticulosis with no evidence of acute diverticulitis. 3. Mild fatty infiltration of the liver. 4. Status post cholecystectomy and hysterectomy. Electronically signed by: Nicko Ansari MD (07/29/2018 3:09 PM) [id number]
== END | disposition home or self-care (01) ==
LOC: KCIC CT 10:24
PROVIDERS: ATTEND Urology
DX: R31.0 Gross hematuria (principal); K57.30 Diverticulosis of large intestine without perforation or abscess without bleeding; K42.9 Umbilical hernia without obstruction or gangrene; I10 Essential (primary) hypertension; Z90.49 Acquired absence of other specified parts of digestive tract; Z90.710 Acquired absence of both cervix and uterus; Z79.01 Long term (current) use of anticoagulants
CPT/HCPCS: 74178; 82565; Q9967

== ENCOUNTER → 2019-01-31 | Outpatient (CLI) | payer OTHER ==
[2018-02-01 11:35] VITALS: BP 140/71
[~2019-01-31] MED LIST changes: -IOHEXOL 300 MG/ML 100ML VIAL. IV ONE
--- NOTE | 2019-01-31 13:01 | KCIC ---
EXAM: Lumbar spine, 3 views. HISTORY: Radiculopathy. COMPARISON: None. FINDINGS: 3 views lumbar spine are obtained. There is minimal retrolisthesis of L5 on S1. There is degenerative endplate remodeling with disc space narrowing and facet arthropathy at this level. There is also mild endplate remodeling throughout the remainder of the lumbar spine. There are cholecystectomy clips. IMPRESSION: 1. Multilevel degenerative change, primarily at the lumbosacral junction. 2. No acute osseous finding. Electronically signed by: Gloria Thompson MD (01/31/2019 12:58 PM) [place] [id number]
== END | disposition home or self-care (01) ==
LOC: KCIC 09:59
PROVIDERS: ATTEND Internal Medicine
DX: M47.27 Other spondylosis with radiculopathy, lumbosacral region (principal); M48.07 Spinal stenosis, lumbosacral region; M12.88 Other specific arthropathies, not elsewhere classified, other specified site; Z90.49 Acquired absence of other specified parts of digestive tract
CPT/HCPCS: 72100

== ENCOUNTER → 2019-05-30 | Outpatient (CLI) | payer OTHER ==
[2018-02-01 11:35] VITALS: BP 140/71
[~2019-05-30] MED LIST changes: -MAGN400T3 PO; +MAGN400T5 PO; +OMEP40CA45 PO; -OMEP40CA5 PO
--- NOTE | 2019-05-30 14:15 | KCIC ---
Bone mineral density study dated 05/30/2019. Comparison made to 06/12/2015. Indication: Estrogen deficiency. Postmenopausal.. Findings: Lower lumbar spine: BMD (g/cm2): Total L1-L4.......... 1.313. . T-Score: Total L1-L4.................... 2.4. Z-Score: Total L1-L4 ................... 4.4. Stable compared to the prior study. Left Hip: BMD (g/cm2): Total .......... 0.876. . T-Score: Total .................... -0.5. Z-Score: Total ................... 0.8. Decreased by 12.3% from prior study. World Health Organization criteria for BMD interpretation classify patients as Normal (T-score at or above -1.0), Osteopenic (T-score between -1.0 and -2.5), or Osteoporotic (T-score at or below -2.5). Impression: According to the World Health Organization, bone mineral density values remain within the range of normal. There is been 12% decrease in density values of the left hip. Electronically signed by: Nicko Ansari MD (05/30/2019 2:12 PM) [id number]
--- NOTE | 2019-05-30 17:00 | KCIC ---
Bilateral digital screening mammograms with 3-D tomosynthesis: Reason for examination: Routine screening. Comparison is made to previous studies dated 05/05/2018 and 03/04/2017. Bilateral mammograms in CC and oblique projections were obtained with 2-D imaging and 3-D tomosynthesis imaging on a Siemens Inspiration unit and reviewed on the workstation. Interpretation was made with the benefit of CAD. The skin and nipples show no abnormalities. No abnormal axillary lymph nodes are seen. The breast parenchyma shows scattered fatty and fibroglandular density. (Breast density: Category B.) There continue to be small parenchymal densities bilaterally which are stable. There are no new dominant masses, suspicious calcifications or architectural distortion. Benign calcifications are present. Impression: No evidence of malignancy. Recommend routine screening. BI-RAD Category 2: Benign. "Our facility is accredited by the [employer] Mammography Program." This patient's information has been entered into a reminder system for the patient to be notified with the results of her examination and a target date for the next mammogram. Electronically signed by: Kenyetta Hyde MD (05/30/2019 4:58 PM) [id number]
== END | disposition home or self-care (01) ==
LOC: KCIC DEXA 13:27
PROVIDERS: ATTEND Internal Medicine
DX: Z12.31 Encounter for screening mammogram for malignant neoplasm of breast (principal); E28.39 Other primary ovarian failure; N64.89 Other specified disorders of breast
CPT/HCPCS: 77063; 77067; 77080

== ENCOUNTER 2020-08-01 15:59 | Inpatient (IN) | payer OTHER ==
[~2020-08-01] VITALS: Ht 162.6 cm; Wt 119.7 kg
[~2020-08-01 15:59] MED LIST changes: -DOCU-150 PO; +DOCU-158 PO; -OMEP40CA45 PO; +OMEP40CA7 PO
[2020-08-01] MEDS ORDERED: BUTA-177 PO (16:59)
[2020-08-01] MEDS ORDERED: SUCR1TAB PO (16:59)
[2020-08-01] MEDS ORDERED: LISI-517 PO (16:59)
[2020-08-01] MEDS ORDERED: DILT180T7 PO (16:59)
[2020-08-01] MEDS ORDERED: TRIA15CR TP (16:59)
[2020-08-01] MEDS ORDERED: MIRA25TA PO (16:59)
[2020-08-01] MEDS ORDERED: CYCL5TAB PO (16:59)
[2020-08-01] MEDS ORDERED: ESCITALOPRAM OX20 MG PO (16:59)
[2020-08-01] MEDS ORDERED: POTA20TA4 PO (16:59)
[2020-08-01] MEDS ORDERED: NITROGLYCERIN TOP (16:59)
[2020-08-01] MEDS ORDERED: FLUT1BLS3 IH (16:59)
[2020-08-01] MEDS ORDERED: BUDE10.2 IH (16:59)
[2020-08-01] MEDS ORDERED: SULF1TAB24 PO (16:59)
[2020-08-01] MEDS ORDERED: FERR-36 PO (16:59)
--- NOTE | 2020-08-01 17:08 | NUR ---
Dr. Cardenas paged re: admission orders.
[2020-08-01] MEDS ORDERED: ONDANSETRON PF 4 MG/2 ML VIAL. IVP PRN ×2 (17:45→22:15)
[2020-08-01] MEDS ORDERED: NITROGLYCERIN SUBLINGUAL 0.4 MG BOTTLE OF 25. SL PRN (18:45)
[2020-08-01] MEDS: POTASSIUM CHLORIDE 20 MEQ TABLET.ER. PO SCH (19:00)
[2020-08-01] MEDS: FERROUS SULFATE 325 MG TABLET. PO SCH (19:00)
[2020-08-01 19:30] VITALS: BP 136/81
[2020-08-01] MEDS: IV NORMAL SALINE 1000ML BAG 1,000 ML IV SCH (19:54)
[2020-08-01] MEDS: CIPROFLOXACIN 400MG PREMIX 200 ML IV SCH (19:58)
[2020-08-01] MEDS ORDERED: ANTI-COAG MONITOR BY PHARMACY. MC PRN (20:00)
[2020-08-01] MEDS ORDERED: NON FORMULARY ITEM (Albuterol Sulfate (Ventolin Hfa Inhaler) 2 PUFF) INH SCH (20:00)
[2020-08-01] MEDS ORDERED: IPRATRPIUM/ALBUTEROL 0.5/2.5MG 3 ML NEBU. ONE (20:21)
[2020-08-01] MEDS: IPRATROPIUM BROMIDE 0.5 MG/2.5 ML NEBU. NEB SCH (20:25)
[2020-08-01] MEDS: BUDESONIDE 0.5 MG/2 ML NEBU. NEB SCH (20:25)
[2020-08-01] MEDS: TRIAMCINOLONE ACETONIDE 0.5% TOPICAL CREAM 15GM TUBE. TP SCH (21:00)
[2020-08-01] MEDS: SUCRALFATE 1 GM TABLET. PO SCH (21:00)
[2020-08-01] MEDS: REPAGLINIDE 0.5 MG TABLET PO SCH (21:00)
[2020-08-01] MEDS ORDERED: NON FORMULARY ITEM (Budesonide/Formoterol Fumarate (Symbicort 160-4.5 Mcg Inhaler) 2 PUFF) IH SCH (21:00)
[2020-08-01] MEDS ORDERED: SMZ/TMP 800/160MG TABLET. PO SCH (21:00)
[2020-08-01] MEDS: CYCLOBENZAPRINE 10 MG TABLET. PO SCH (21:00)
--- NOTE | 2020-08-01 21:14 | RAD ---
Exam: CT of abdomen and pelvis without contrast INDICATION: Abdominal pain, possible diverticulitis TECHNIQUE: Sequential axial images through the abdomen and pelvis obtained without IV contrast. Sagit soren and coronal reformatted images were reconstructed from the axial data and reviewed. Comparisons: 07/29/2018 FINDINGS: Heart size is normal. No pericardial effusion. Visualized lung bases are clear. No pleural effusion. Liver, spleen, pancreas and adrenals are unremarkable. Gallbladder surgically absent. No perinephric inflammation or hydronephrosis. No renal or ureteral calculi are identified. Bladder is partially distended and appears thin-walled. Uterus is absent. No abnormal adnexal mass. Diverticulosis noted at the sigmoid colon without evidence of acute diverticulitis. Remainder of the large and small bowel are unremarkable. Appendix is not identified. No free intra-abdominal air or fl uid. No obstruction. Abdominal aorta has a normal course and caliber. No enlarged abdominal lymph nodes are identified. No suspicious osseous lesions or acute fractures. IMPRESSION: Diverticulosis without evidence of acute diverticulitis. Exposure: One or more of the following in the visualized dose reduction techniques were utilized for this examination: 1. Automated exposure control 2. Adjustment of the MA and/or KV according to patient size 3. Use of iterative of reconstructive technique Electronically signed by: Kirby Chaparro MD (08/01/2020 9:12 PM) [facility]
[2020-08-01] MEDS: BUTALB/APAP/CAFEIN 50/325/40MG TABLET. PO SCH (21:25)
[2020-08-01] MEDS: DICYCLOMINE HCL 10 MG CAPSULE PO SCH (21:25)
[2020-08-01] MEDS: PANTOPRAZOLE 40 MG TABLET.DR. PO SCH (21:26)
[2020-08-01] MEDS: FLECAINIDE ACETATE 50 MG TABLET. PO SCH (21:26)
[2020-08-01] MEDS: MORPHINE SULFATE 2 MG/ML VIAL. IV PRN (21:36)
[2020-08-01 22:39] LABS: ALBUMIN/GLOBULIN RATIO 0.8 (1.0-1.7); CALCIUM 8.6 mg/dL (8.5-10.1); CREATININE 0.9 mg/dL (0.6-1.0); GFR 62.3; TOTAL BILIRUBIN 0.5 mg/dL (0.2-1.0); TOTAL PROTEIN 6.7 g/dL (6.4-8.2)
[2020-08-01 22:46] LABS: BASO # 0.1 x10^3/uL (0.0-0.2); BASO % 1 % (0-3); EOS # 0.2 x10^3/uL (0.0-0.7); EOS % 2 % (0-3); HEMATOCRIT 43.2 % (36.0-47.0); HEMOGLOBIN 14.7 g/dL (12.0-15.5); LYMPH # 3.9 x10^3/uL (1.0-4.8); LYMPH % 37 % (24-48); MEAN CORPUSCULAR HEMOGLOBIN 30 pg (25-35); MEAN CORPUSCULAR HGB CONC 34 g/dL (31-37); MEAN CORPUSCULAR VOLUME 89 fL (79-100); MONO # 0.8 x10^3/uL (0.0-1.1); MONO % 7 % (0-9); NEUT # 5.6 x10^3/uL (1.8-7.7); NEUT % 53 % (31-73); PLATELET COUNT 108 x10^3/uL (140-400); RED BLOOD COUNT 4.87 x10^6/uL (3.50-5.40); RED CELL DISTRIBUTION WIDTH 13.9 % (11.5-14.5); WHITE BLOOD COUNT 10.5 x10^3/uL (4.0-11.0)
[2020-08-01 22:48] LABS: BILIRUBIN,URINE NEGATIVE (NEG); CLARITY,URINE CLEAR; COLOR,URINE YELLOW; NITRITE,URINE NEGATIVE (NEG); PH,URINE 6.5 (<5.0-8.0); PROTEIN,URINE NEGATIVE (NEG-TRACE); UROBILINOGEN,URINE 0.2 mg/dL (0.2 mg/dL)
[2020-08-01 23:00] LABS: BACTERIA,URINE 0 /HPF (0-FEW); WBC,URINE OCC /HPF (0-4)
[2020-08-01 23:19] VITALS: BP 90/54
[2020-08-02 03:18] VITALS: BP 107/65
[2020-08-02] MEDS: SUCRALFATE 1 GM TABLET. PO SCH ×4 (05:12→20:41)
[2020-08-02] MEDS: PANTOPRAZOLE 40 MG TABLET.DR. PO SCH ×2 (05:12→16:41)
[2020-08-02] MEDS: IV NORMAL SALINE 1000ML BAG 1,000 ML IV SCH ×3 (05:14→17:46)
[2020-08-02] MEDS: LEVOTHYROXINE 100 MCG TABLET PO SCH (05:14)
[2020-08-02 06:05] LABS: BASO # 0.1 x10^3/uL (0.0-0.2); BASO % 1 % (0-3); EOS # 0.1 x10^3/uL (0.0-0.7); EOS % 1 % (0-3); HEMATOCRIT 41.5 % (36.0-47.0); LYMPH # 2.4 x10^3/uL (1.0-4.8); LYMPH % 26 % (24-48); MEAN CORPUSCULAR HEMOGLOBIN 30 pg (25-35); MEAN CORPUSCULAR HGB CONC 34 g/dL (31-37); MEAN CORPUSCULAR VOLUME 90 fL (79-100); MONO # 0.7 x10^3/uL (0.0-1.1); MONO % 8 % (0-9); NEUT # 6.1 x10^3/uL (1.8-7.7); NEUT % 65 % (31-73); PLATELET COUNT 100 x10^3/uL (140-400); RED BLOOD COUNT 4.61 x10^6/uL (3.50-5.40); RED CELL DISTRIBUTION WIDTH 13.8 % (11.5-14.5); WHITE BLOOD COUNT 9.5 x10^3/uL (4.0-11.0)
[2020-08-02 06:22] LABS: CALCIUM 8.1 mg/dL (8.5-10.1); CREATININE 0.9 mg/dL (0.6-1.0); GFR 62.3; POTASSIUM 4.2 mmol/L (3.5-5.1)
[2020-08-02 07:00] VITALS: BP 120/85
[2020-08-02] MEDS: IPRATROPIUM BROMIDE 0.5 MG/2.5 ML NEBU. NEB SCH ×3 (07:12→19:40)
[2020-08-02] MEDS: BUDESONIDE 0.5 MG/2 ML NEBU. NEB SCH ×2 (07:12→19:40)
[2020-08-02] MEDS: MORPHINE SULFATE 2 MG/ML VIAL. IV PRN (07:48)
[2020-08-02] MEDS: FLUTICASONE/VILANTEROL 100/25 INHALER. INH SCH (08:46)
[2020-08-02] MEDS: DICYCLOMINE HCL 10 MG CAPSULE PO SCH ×2 (08:47→20:41)
[2020-08-02] MEDS: FLECAINIDE ACETATE 50 MG TABLET. PO SCH ×2 (08:47→20:41)
[2020-08-02] MEDS: POTASSIUM CHLORIDE 20 MEQ TABLET.ER. PO SCH ×2 (08:48→16:41)
[2020-08-02] MEDS: BUTALB/APAP/CAFEIN 50/325/40MG TABLET. PO SCH ×2 (08:48→20:42)
[2020-08-02] MEDS: FUROSEMIDE 40 MG TABLET. PO SCH (08:48)
[2020-08-02] MEDS: AMITRIPTYLINE HCL 10 MG TABLET. PO SCH (08:48)
[2020-08-02] MEDS: FERROUS SULFATE 325 MG TABLET. PO SCH ×2 (08:48→16:41)
[2020-08-02] MEDS: LISINOPRIL 5 MG TABLET. PO SCH (08:50)
[2020-08-02] MEDS: CITALOPRAM 20 MG TABLET. PO SCH (08:51)
[2020-08-02] MEDS: CYCLOBENZAPRINE 10 MG TABLET. PO SCH ×2 (08:51→20:42)
[2020-08-02] MEDS: NITROGLYCERIN 0.4MG/HR PATCH. TD SCH (08:52)
[2020-08-02] MEDS: REPAGLINIDE 0.5 MG TABLET PO SCH ×2 (08:53→20:42)
[2020-08-02] MEDS: CIPROFLOXACIN 400MG PREMIX 200 ML IV SCH ×2 (08:54→22:05)
[2020-08-02] MEDS: TRIAMCINOLONE ACETONIDE 0.5% TOPICAL CREAM 15GM TUBE. TP SCH ×2 (08:59→20:42)
[2020-08-02] MEDS ORDERED: NON FORMULARY ITEM (Mirabegron (Myrbetriq) 50 MG) PO SCH (09:00)
--- NOTE | 2020-08-02 09:17 | NUR ---
SW following. Discussed with RN, pt from home with , room air, clear liquid diet. GI consulted. RN advised no SW needs at this time. SW will continue to follow.
[2020-08-02 11:00] VITALS: BP_SYST 119; BP_SYST 135; BP_DIAS 68; BP_DIAS 69
--- NOTE | 2020-08-02 11:38 | PDOC2 ---
GI CONSULT Date of Service: DATE: 08/02/20 TIME: 11:36 Reason For Consult: abd pain, poss diverticulitis HPI: HPI: Pleasant 69 y/o female who I saw earlier this morning. Directly admitted by Dr. Cardenas for abdominal pain, concern for diverticulitis. She reports 4 days of worsening abdominal pain. No precipitating events. Starts in lower abdomen and spreads upwards to epigastrium and to both sides. "Twisting" and "tightening" pain. Worse after eating. Feels bloated. No early satiety. Has been treated w/ antibiotics for diverticulitis in the past - this feels the same. On IV antibiotics and clear liquid diet. H/o GERD on omeprazole QD and Sucralfate TID. No dysphagia. Some nausea w/ this pain but no vomiting. H/o abdominal cramping and occasional diarrhea or constipation, though neither have been bothersome recently. Takes dicyclomine BID. No hematochezia or melena. No weight loss. This pain is not like acid reflux pain or usual stomach cramping pain. Colonoscopy 2011 (Dr. Rain): benign polyp, diverticulosis, hemorrhoids. EGD 2013 (Dr. Rain): erosive gastritis (biopsy negative), antral ulcers), small hiatal hernia. Colonoscopy 2016 (Dr. Rain): sigmoid diverticulosis, internal hemorrhoids. EGD 2017 (Dr. Rain) for RASHAD: cannot view procedure report - path report for biopy of gastric erosions showed mild chronic gastritis with focal erosion and acute inflammation, negative for H. pylori. S/p cholecystectomy (biliary dyskinesia). Fatty liver on past imaging. No pancreas history. Takes iron QD at home. H/o A Fib on Xarelto and ASA 81mg QHS. H/o ITP w/ past hematology eval. PMH: PMH: A Fib, HTN, HLD, asthma, COPD, JOHANA, ITP, anxiety, MRSA, anemia, hypothyroidism, DM cataract removal, left wrist, right hip replacement, bilateral knee replacements, cholecystectomy, total hysterectomy, bladder lift FH: Family History: Cancer (father - liver) Social History: Smoke: No ALCOHOL: none Drugs: None ROS: GEN: Denies fevers, chills, sweats HEENT: Denies blurred vision, sore throat CV: Denies chest pain RESP: Denies shortness of air, cough GI: Per HPI : Denies hematuria, dysuria ENDO: Denies weight changes NEURO: Denies confusion, dizziness MSK: Denies weakness, joint pain/swelling SKIN: Denies jaundice, pruritus Vitals: Vitals: Vital Signs Date Time Temp Pulse Resp B/P (MAP) Pulse Ox O2 Delivery O2 Flow Rate FiO2 08/02/20 11:32 75 119/68 08/02/20 11:00 98.1 18 93 Room Air 98.1 Labs: Labs: Laboratory Tests Test 08/01/20 22:00 08/02/20 05:28 White Blood Count 10.5 x10^3/uL (4.0-11.0) 9.5 x10^3/uL (4.0-11.0) Red Blood Count 4.87 x10^6/uL (3.50-5.40) 4.61 x10^6/uL (3.50-5.40) Hemoglobin 14.7 g/dL (12.0-15.5) 14.0 g/dL (12.0-15.5) Hematocrit 43.2 % (36.0-47.0) 41.5 % (36.0-47.0) Mean Corpuscular Volume 89 fL (79-100) 90 fL (79-100) Mean Corpuscular Hemoglobin 30 pg (25-35) 30 pg (25-35) Mean Corpuscular Hemoglobin Concent 34 g/dL (31-37) 34 g/dL (31-37) Red Cell Distribution Width 13.9 % (11.5-14.5) 13.8 % (11.5-14.5) Platelet Count 108 x10^3/uL (140-400) 100 x10^3/uL (140-400) Neutrophils (%) (Auto) 53 % (31-73) 65 % (31-73) Lymphocytes (%) (Auto) 37 % (24-48) 26 % (24-48) Monocytes (%) (Auto) 7 % (0-9) 8 % (0-9) Eosinophils (%) (Auto) 2 % (0-3) 1 % (0-3) Basophils (%) (Auto) 1 % (0-3) 1 % (0-3) Neutrophils # (Auto) 5.6 x10^3/uL (1.8-7.7) 6.1 x10^3/uL (1.8-7.7) Lymphocytes # (Auto) 3.9 x10^3/uL (1.0-4.8) 2.4 x10^3/uL (1.0-4.8) Monocytes # (Auto) 0.8 x10^3/uL (0.0-1.1) 0.7 x10^3/uL (0.0-1.1) Eosinophils # (Auto) 0.2 x10^3/uL (0.0-0.7) 0.1 x10^3/uL (0.0-0.7) Basophils # (Auto) 0.1 x10^3/uL (0.0-0.2) 0.1 x10^3/uL (0.0-0.2) Urine Collection Type Unknown Urine Color Yellow Urine Clarity Clear Urine pH 6.5 (<5.0-8.0) Urine Specific [place] 1.015 (1.000-1.030) Urine Protein Negative mg/dL (NEG-TRACE) Urine Glucose (UA) >=1000 mg/dL (NEG) Urine Ketones (Stick) Negative mg/dL (NEG) Urine Blood Small (NEG) Urine Nitrite Negative (NEG) Urine Bilirubin Negative (NEG) Urine Urobilinogen Dipstick 0.2 mg/dL (0.2 mg/dL) Urine Leukocyte Esterase Negative (NEG) Urine RBC 1-2 /HPF (0-2) Urine WBC Occ /HPF (0-4) Urine Squamous Epithelial Cells Few /LPF Urine Bacteria 0 /HPF (0-FEW) Urine Mucus Slight /LPF Sodium Level 138 mmol/L (136-145) 138 mmol/L (136-145) Potassium Level 4.0 mmol/L (3.5-5.1) 4.2 mmol/L (3.5-5.1) Chloride Level 102 mmol/L (98-107) 104 mmol/L (98-107) Carbon Dioxide Level 28 mmol/L (21-32) 27 mmol/L (21-32) Anion Gap 8 (6-14) 7 (6-14) Blood Urea Nitrogen 9 mg/dL (7-20) 10 mg/dL (7-20) Creatinine 0.9 mg/dL (0.6-1.0) 0.9 mg/dL (0.6-1.0) Estimated GFR (Cockcroft-Gault) 62.3 62.3 BUN/Creatinine Ratio 10 (6-20) Glucose Level 183 mg/dL (70-99) 203 mg/dL (70-99) Calcium Level 8.6 mg/dL (8.5-10.1) 8.1 mg/dL (8.5-10.1) Total Bilirubin 0.5 mg/dL (0.2-1.0) Aspartate Amino Transf (AST/SGOT) 32 U/L (15-37) Alanine Aminotransferase (ALT/SGPT) 32 U/L (14-59) Alkaline Phosphatase 73 U/L (46-116) Total Protein 6.7 g/dL (6.4-8.2) Albumin 3.0 g/dL (3.4-5.0) Albumin/Globulin Ratio 0.8 (1.0-1.7) Allergies: Coded Allergies: Iodinated Contrast Media (Verified Allergy, Severe, OK with premeds, 01/31/18) TEE Inhibitors (Verified Allergy, Intermediate, COUGH, 02/01/18) Penicillins (Verified Allergy, Intermediate, 01/31/18) codeine (Verified Allergy, Intermediate, 01/31/18) hydrocodone (Verified Allergy, Intermediate, itching, 01/31/18) latex (Verified Allergy, Intermediate, 01/31/18) meperidine (Verified Allergy, Intermediate, 01/31/18) tramadol (Verified Allergy, Intermediate, 01/31/18) Medications: Current Medications Medications (Trade) Dose Ordered Sig/Simin Route PRN Reason Start Time Stop Time Status Last Admin Dose Admin Sodium Chloride 1,000 ml @ 100 mls/hr Q10H IV 08/01/20 17:45 08/02/20 05:14 Metronidazole 100 ml @ 100 mls/hr Q12HR IV 08/01/20 21:00 08/02/20 10:22 Ciprofloxacin/ Dextrose 200 ml @ 200 mls/hr Q12HR IV 08/01/20 21:00 08/02/20 08:54 Morphine Sulfate (Morphine Sulfate) 2 mg PRN Q3HRS PRN IV PAIN 08/01/20 17:45 08/02/20 07:48 Amitriptyline HCl (Elavil) 10 mg DAILY PO 08/02/20 09:00 08/02/20 08:48 Dicyclomine HCl (Bentyl) 10 mg BID PO 08/01/20 21:00 08/02/20 08:47 Ferrous Sulfate (Feosol) 325 mg BIDWMEALS PO 08/01/20 19:00 08/02/20 08:48 Furosemide (Lasix) 40 mg DAILY PO 08/02/20 09:00 08/02/20 08:48 Lisinopril (Prinivil) 5 mg DAILY PO 08/02/20 09:00 08/02/20 08:50 Potassium Chloride (Klor-Con) 20 meq BIDWMEALS PO 08/01/20 19:00 08/02/20 08:48 Sucralfate (Carafate) 1 gm QIDACHS PO 08/01/20 21:00 08/02/20 11:32 Acetaminophen/ Butalbital/ Caffeine (Fioricet) 1 tab BID PO 08/01/20 21:00 08/02/20 08:48 Cyclobenzaprine HCl (Flexeril) 5 mg BID PO 08/01/20 21:00 08/02/20 08:51 Diltiazem HCl (Cardizem 24hr Cd) 180 mg QODAY PO 08/02/20 11:00 08/02/20 11:32 Citalopram Hydrobromide (CeleXA) 40 mg DAILY PO 08/02/20 09:00 08/02/20 08:51 Flecainide Acetate (Tambocor) 100 mg Q12HR PO 08/01/20 21:00 08/02/20 08:47 Fluticasone/ Vilanterol (Breo Ellipta 100-25 Mcg) 1 puff DAILY INH 08/02/20 09:00 08/02/20 08:46 Levothyroxine Sodium (Synthroid) 200 mcg DAILY06 PO 08/02/20 06:00 08/02/20 05:14 Repaglinide (Prandin) 1 mg BID PO 08/01/20 21:00 08/02/20 08:53 Pantoprazole Sodium (Protonix) 40 mg BIDAC PO 08/01/20 19:00 08/02/20 05:12 Nitroglycerin (Nitro-Dur 0.4mg) 1 patch DAILY TD 08/02/20 09:00 08/02/20 08:52 Ipratropium [place] (Atrovent) 0.5 mg Q6HRS NEB 08/02/20 00:00 08/02/20 07:12 Budesonide (Pulmicort) 0.5 mg RTBID NEB 08/01/20 20:00 08/02/20 07:12 Imaging: Imaging: CT A/P 08/01 IMPRESSION: Diverticulosis without evidence of acute diverticulitis. PE: GEN: NAD HEENT: Atraumatic, PERRL LUNGS: CTAB HEART: RRR ABD: obese, quiet, non-specifically tender - some in epigastrium, some RUQ, some RLQ/suprapubic, some LLQ EXTREMITY: No edema SKIN: No rashes, no jaundice NEURO/PSYCH: A & O 3 A/P: A/P: Abdominal pain - diffuse - associated w/ nausea and bloating GERD, PUD - on PPI and Carafate, EGDs in past as above (last 2017) CRC screen - UTD (2016) ?IBS, h/o alternating bowel habits - currently no complaints Diverticulosis, hemorrhoids S/p cholecystectomy Hepatic steatosis H/o A Fib on Xarelto and ASA, h/o ITP -- Labs and imaging unrevealing. ?past diverticulitis - not on imaging here Will review w/ Dr. Guardado. Agree w/ PPI. JENI YU Aug 02, 2020 11:38
[2020-08-02 15:00] VITALS: BP 112/66
--- NOTE | 2020-08-02 15:56 | PDOC ---
Provider Note Date of Service: DATE: 08/02/20 TIME: 15:55 Provider Note Pt seen.H&P dictated.#[id number] Justifications for Admission Other Justification HANNAH IBARRA MD Aug 02, 2020 15:56
[2020-08-02] MEDS: RIVAROXABAN 10 MG TABLET. PO SCH (16:41)
--- NOTE | 2020-08-02 17:11 | HP ---
ADMIT DATE: 08/01/2020 REASON FOR ADMISSION TO THE HOSPITAL: Abdominal pain, possible diverticulitis. HISTORY OF PRESENT ILLNESS: The patient is a 69-year-old female. The patient had history of diverticulosis, last colonoscopy 4-5 years ago. She woke up with severe abdominal pain progressively worse, lot of cramping, very hard for her to sleep and has lot of nausea, not able to eat anything. The patient was seen in the office, was tender in the abdomen and was admitted to the hospital. CT scan shows diverticulosis. PAST MEDICAL HISTORY: Has diverticulitis in the past, gastritis, last colonoscopy was 2016. OTHER MEDICAL HISTORY: Has AFib, hypertension, hyperlipidemia,Obesity, fatty liver, asthma, ITP, diabetes. PAST SURGICAL HISTORY: Cataract, right hip replacement, bilateral knee replacement, gallbladder surgery, hysterectomy, bladder lift surgery. FAMILY HISTORY: Father has cancer of the liver. SOCIAL HISTORY: Denies smoking, alcohol or drug abuse. The patient, as mentioned, had EGD colonoscopy in the past. ALLERGIES: TEE INHIBITORS, IODINATED CONTRAST, PENICILLIN, CODEINE, HYDROCODONE, LATEX, DEMEROL, AND TRAMADOL. MEDICATIONS AT HOME: The patient is on amitriptyline 10 mg daily, Pulmicort twice a day, butalbital for migraines, Celexa 40 mg daily, cyclobenzaprine 5 mg twice a day, Bentyl 10 mg twice a day, diltiazem 180 mg daily, flecainide 100 mg q.12, iron 325 twice a day, fluticasone daily, Lasix 40 mg daily, ipratropium or Atrovent twice a day, DuoNeb 4 times daily, levothyroxine 200 mcg daily, lisinopril 5 mg daily, morphine just in the hospital, nitro patch daily 0.4, Zofran for nausea, pantoprazole 40 mg daily, potassium 20 mEq twice a day, Prandin 1 mg twice a day, Xarelto 20 mg daily, Carafate 1 g 4 times a day, Myrbetriq for bladder 50 mg daily. REVIEW OF SYSTEMS: CARDIAC: Denies chest pain. GASTROINTESTINAL: As mentioned, abdominal pain, has lot of cramping, nausea, some vomiting, no diarrhea, some constipation. Rest of the 14-system was reviewed and negative. PHYSICAL EXAMINATION: VITAL SIGNS: At the time of admission, vital shows temperature 98, pulse 80, respirations 18, blood pressure 136/81, 94 on room air. HEENT: Head is atraumatic. Pupils equal. Oral cavity: No congestion. NECK: Supple. Thyroid not enlarged. JVD not elevated. CHEST: Symmetrical. CARDIOVASCULAR: S1, S2. LUNGS: Clear to auscultation. No wheezing. ABDOMEN: Protuberant, tenderness, left lower quadrant to deep palpation. Bowel sounds were sluggish. RECTAL: Deferred. EXTERNAL GENITALIA: No [place]. EXTREMITIES: No calf tenderness, no edema. Pulses 1+. NEUROLOGIC: Moving all extremities. No focal deficits noted. LABORATORY DATA: White count 10, hemoglobin 14, platelets 108. Electrolytes showed sodium 138, potassium 4.0, chloride 102, bicarbonate 28, BUN 9, creatinine 0.9, glucose 183. LFTs normal. Urine shows occasional wbc's, esterase negative. CT scan shows some diverticulosis. FINAL IMPRESSION: 1. Abdominal pain. 2. Possible Ac diverticulitis, history of previous diverticulosis and diverticulitis in the past. 3. Diabetes. 4. Hypertension. 5. Hyperlipidemia. 6. Hypothyroidism. 7. Atrial fibrillation. PLAN: At this time, admit to the hospital, hydrate with IV fluids, clear liquid diet, start on Cipro as well as Flagyl IV. GI consultation and see how she responds in the next couple of days.CT scan abd and pelvis.IV pain meds. HANNAH IBARRA MD DR: NAZANIN/katie JOB#: [id number] / [id number] FATUMA
[2020-08-02 19:00] VITALS: BP 108/51
[2020-08-02 23:00] VITALS: BP 111/56
[2020-08-03 03:00] VITALS: BP 120/64
[2020-08-03] MEDS: IV NORMAL SALINE 1000ML BAG 1,000 ML IV SCH ×2 (04:12→17:09)
[2020-08-03] MEDS: LEVOTHYROXINE 100 MCG TABLET PO SCH (06:00)
[2020-08-03 07:00] VITALS: BP 138/57
[2020-08-03] MEDS: IPRATROPIUM BROMIDE 0.5 MG/2.5 ML NEBU. NEB SCH ×4 (07:31→18:00)
[2020-08-03] MEDS: BUDESONIDE 0.5 MG/2 ML NEBU. NEB SCH ×2 (07:31→19:59)
[2020-08-03] MEDS: LISINOPRIL 5 MG TABLET. PO SCH (08:30)
[2020-08-03] MEDS: PANTOPRAZOLE 40 MG TABLET.DR. PO SCH ×2 (08:31→17:08)
[2020-08-03] MEDS: DICYCLOMINE HCL 10 MG CAPSULE PO SCH ×2 (08:31→20:30)
[2020-08-03] MEDS: CYCLOBENZAPRINE 10 MG TABLET. PO SCH ×2 (08:31→20:30)
[2020-08-03] MEDS: FUROSEMIDE 40 MG TABLET. PO SCH (08:31)
[2020-08-03] MEDS: AMITRIPTYLINE HCL 10 MG TABLET. PO SCH (08:32)
[2020-08-03] MEDS: NITROGLYCERIN 0.4MG/HR PATCH. TD SCH (08:32)
[2020-08-03] MEDS: REPAGLINIDE 0.5 MG TABLET PO SCH ×2 (08:32→20:31)
[2020-08-03] MEDS: FERROUS SULFATE 325 MG TABLET. PO SCH ×2 (08:32→17:07)
[2020-08-03] MEDS: POTASSIUM CHLORIDE 20 MEQ TABLET.ER. PO SCH ×2 (08:32→17:08)
[2020-08-03] MEDS: SUCRALFATE 1 GM TABLET. PO SCH ×4 (08:32→20:34)
[2020-08-03] MEDS: FLECAINIDE ACETATE 50 MG TABLET. PO SCH ×2 (08:33→20:31)
[2020-08-03] MEDS: CIPROFLOXACIN 400MG PREMIX 200 ML IV SCH ×2 (08:33→21:48)
[2020-08-03] MEDS: CITALOPRAM 20 MG TABLET. PO SCH (08:33)
[2020-08-03] MEDS: BUTALB/APAP/CAFEIN 50/325/40MG TABLET. PO SCH ×2 (08:33→20:30)
[2020-08-03] MEDS: TRIAMCINOLONE ACETONIDE 0.5% TOPICAL CREAM 15GM TUBE. TP SCH ×2 (08:47→20:34)
[2020-08-03] MEDS: FLUTICASONE/VILANTEROL 100/25 INHALER. INH SCH (08:47)
--- NOTE | 2020-08-03 10:49 | PDOC ---
IM PROGRESS NOTES- Subjective Subjective Abdominal pain is improving. Objective Vitals/I&O Vital Signs Date Time Temp Pulse Resp B/P (MAP) Pulse Ox O2 Delivery O2 Flow Rate FiO2 08/03/20 08:33 67 138/57 08/03/20 07:32 95 Room Air 08/03/20 07:00 98.4 18 98.4 I & O 08/02/20 08/02/20 08/03/20 15:00 23:00 07:00 Intake Total 1140 ml 2000 ml Output Total 2100 ml Balance -960 ml 2000 ml Physical Exam Physical Exam General appearance - alert, and in no distress and oriented to person, place, and time Mental Status - alert, oriented to person, place, and time, affect appropriate to mood Head - normal Chest - clear to auscultation, Heart - S1 and S2 normal Abdomen -obese, soft, nontender, Neurological - alert and oriented Extremities - no pedal edema Skin - warm and dry Meds Current Medications Medications (Trade) Dose Ordered Sig/Simin Route PRN Reason Start Time Stop Time Status Last Admin Dose Admin Diltiazem HCl (Cardizem 24hr Cd) 180 mg QODAY PO 08/02/20 11:00 08/02/20 15:53 DC 08/02/20 11:32 Rivaroxaban (Xarelto) 20 mg DAILYWSUP PO 08/02/20 17:00 08/02/20 16:41 Assessment Assessment 1. Abdominal pain. 2. Possible diverticulitis, history of previous diverticulosis and diverticulitis in the past. 3. Diabetes. 4. Hypertension. 5. Hyperlipidemia. 6. Hypothyroidism. 7. Atrial fibrillation. PLAN: Continue IV Cipro and Flagyl. CT scan of abdomen shows diverticulosis. Discontinue IV fluids. If she continues to improve possible discharge tomorrow. Condition and treatment discussed with the patient and the family. Plan Plan For more details regarding further plans, please refer to the orders. Justifications for Admission Other Justification MADELEINE MONTERROSO MD Aug 03, 2020 10:49
[2020-08-03 11:00] VITALS: BP 102/66
[2020-08-03 15:15] VITALS: BP 116/60
[2020-08-03] MEDS: RIVAROXABAN 10 MG TABLET. PO SCH (17:08)
[2020-08-03 19:00] VITALS: BP 136/77
[2020-08-03 23:00] VITALS: BP 136/68
[2020-08-04] MEDS: IPRATROPIUM BROMIDE 0.5 MG/2.5 ML NEBU. NEB SCH ×3 (00:25→12:29)
[2020-08-04] MEDS: IV NORMAL SALINE 1000ML BAG 1,000 ML IV SCH (01:07)
[2020-08-04 03:00] VITALS: BP 133/70
[2020-08-04] MEDS: LEVOTHYROXINE 100 MCG TABLET PO SCH (06:22)
[2020-08-04 07:00] VITALS: BP 124/62
[2020-08-04] MEDS: BUDESONIDE 0.5 MG/2 ML NEBU. NEB SCH (07:09)
[2020-08-04] MEDS: CIPROFLOXACIN 400MG PREMIX 200 ML IV SCH (08:12)
[2020-08-04] MEDS: REPAGLINIDE 0.5 MG TABLET PO SCH (08:13)
[2020-08-04] MEDS: DICYCLOMINE HCL 10 MG CAPSULE PO SCH (08:13)
[2020-08-04] MEDS: FLECAINIDE ACETATE 50 MG TABLET. PO SCH (08:13)
[2020-08-04] MEDS: CITALOPRAM 20 MG TABLET. PO SCH (08:14)
[2020-08-04] MEDS: FERROUS SULFATE 325 MG TABLET. PO SCH (08:14)
[2020-08-04] MEDS: NITROGLYCERIN 0.4MG/HR PATCH. TD SCH (08:14)
[2020-08-04] MEDS: AMITRIPTYLINE HCL 10 MG TABLET. PO SCH (08:15)
[2020-08-04] MEDS: CYCLOBENZAPRINE 10 MG TABLET. PO SCH (08:15)
[2020-08-04] MEDS: LISINOPRIL 5 MG TABLET. PO SCH (08:15)
[2020-08-04] MEDS: FUROSEMIDE 40 MG TABLET. PO SCH (08:15)
[2020-08-04] MEDS: POTASSIUM CHLORIDE 20 MEQ TABLET.ER. PO SCH (08:15)
[2020-08-04] MEDS: BUTALB/APAP/CAFEIN 50/325/40MG TABLET. PO SCH (08:16)
[2020-08-04] MEDS: SUCRALFATE 1 GM TABLET. PO SCH ×2 (08:16→11:30)
[2020-08-04] MEDS: PANTOPRAZOLE 40 MG TABLET.DR. PO SCH (08:16)
[2020-08-04] MEDS: FLUTICASONE/VILANTEROL 100/25 INHALER. INH SCH (08:16)
[2020-08-04] MEDS: TRIAMCINOLONE ACETONIDE 0.5% TOPICAL CREAM 15GM TUBE. TP SCH (09:00)
--- NOTE | 2020-08-04 10:52 | PDOC ---
PROGRESS NOTES Date of Service: DATE: 08/04/20 TIME: 10:50 Subjective Subjective less abd pain Objective Objective Vital Signs Date Time Temp Pulse Resp B/P (MAP) Pulse Ox O2 Delivery O2 Flow Rate FiO2 08/04/20 08:15 66 133/70 08/04/20 07:10 96 Room Air 08/04/20 07:00 97.7 16 97.7 Intake and Output 08/04/20 07:00 Intake Total 4530 ml Balance 4530 ml Intake Oral 2930 ml IV Total 1600 ml # Voids 7 # Bowel Movements 1 Physical Exam Abdomen: Soft Heart: Regular rate, Normal S1 Extremities: No clubbing General: Alert HEENT: Atraumatic Lungs: Clear to auscultation MUSCULOSKELETAL: Osteoarthritic changes both hands Neck: Supple Neuro: Normal speech Psych/Mental Status: Mental status NL Skin: No breakdown Assessment Assessment 1. Abdominal pain. 2. Possible diverticulitis, history of previous diverticulosis and diverticulitis in the past. 3. Diabetes. 4. Hypertension. 5. Hyperlipidemia. 6. Hypothyroidism. 7. Atrial fibrillation. PLAN: d/c home on po cipro+flagyl for [address] scan of abdomen shows diverticulosis. Labs good. soft gi dietat home. Comment Review of Relevant I have reviewed the following items tamika (where applicable) has been applied. Vitals/I & O Vital Sign - Last 24 Hours 08/03/20 08/03/20 08/03/20 08/03/20 11:00 12:07 15:15 19:00 Temp 98.0 97.9 98.2 98.0 97.9 98.2 Pulse 63 70 62 Resp 18 20 24 B/P (MAP) 102/66 (78) 116/60 (78) 136/77 (96) Pulse Ox 100 95 93 94 O2 Delivery Room Air Room Air Room Air Room Air 08/03/20 08/03/20 08/03/20 08/03/20 19:59 20:00 20:31 23:00 Temp 97.7 97.7 Pulse 70 61 Resp 20 B/P (MAP) 116/60 136/68 (90) Pulse Ox 95 100 O2 Delivery Room Air Room Air Room Air 08/04/20 08/04/20 08/04/20 08/04/20 00:26 03:00 07:00 07:10 Temp 98.2 97.7 98.2 97.7 Pulse 66 67 Resp 20 16 B/P (MAP) 133/70 (91) 124/62 (82) Pulse Ox 96 95 93 96 O2 Delivery Room Air Room Air Room Air Room Air 08/04/20 08/04/20 08:13 08:15 Pulse 66 66 B/P (MAP) 133/70 133/70 Intake and Output 08/03/20 08/03/20 08/04/20 15:00 23:00 07:00 Intake Total 700 ml 1680 ml 2150 ml Balance 700 ml 1680 ml 2150 ml Justifications for Admission Other Justification HANNAH IBARRA MD Aug 04, 2020 10:52
[2020-08-04] MEDS ORDERED: CIPR500T94 PO (10:54)
[2020-08-04] MEDS ORDERED: METR500T PO (10:54)
--- NOTE | 2020-08-04 10:58 | PDOC ---
Provider Note Date of Service: DATE: 08/04/20 TIME: 10:57 Provider Note Discharge summary dictated.#[id number]. Justifications for Admission Other Justification HANNAH IBARRA MD Aug 04, 2020 10:58
[2020-08-04 11:00] VITALS: BP 111/66
--- NOTE | 2020-08-04 11:15 | DS ---
DATE OF DISCHARGE: 08/04/2020 DATE OF DISCHARGE: 08/04/2020 REASON FOR ADMISSION TO THE HOSPITAL: Abdominal pain, diverticulitis. CONSULTATION: Dr. Guardado. PROCEDURES DONE: CT of the abdomen and pelvis. HOSPITAL COURSE: The patient is a 69-year-old female with history of diverticulosis, last colonoscopy 4 years ago. She came with severe abdominal pain, left lower quadrant, very tender, was admitted to the hospital with diagnosis of possible diverticulitis. CT scan of the abdomen was done, it did not show evidence of diverticulitis, but it shows extensive diverticulosis. White count was normal, no fever. The patient was given IV Cipro and Flagyl. GI was consulted. The patient's condition improved over next 3 days. The patient is able to eat. No nausea or vomiting. Pain is improved and she was discharged home on oral Cipro and Flagyl for 1 more week and stay on GI soft diet. FINAL DIAGNOSES: 1. Acute diverticulitis. 2. Chronic diverticulosis. 3. Hypertension. 4. Hyperlipidemia. 5. Hypothyroidism. 6. History of atrial fibrillation, chronic, stable. DISCHARGE MEDICATIONS: See [facility] for discharge medications. HANNAH IBARRA MD DR: NAZANIN/katie JOB#: [id number] / [id number]
--- NOTE | 2020-08-04 13:25 | NUR ---
Patient discharged home with self care. Patient verbalized understanding of discharging instructions. No questions at this time.
== END 2020-08-04 13:05 | disposition home or self-care (01) | DRG 392 ==
LOC: 4 NORTH 15:59
PROVIDERS: ADMIT Internal Medicine; ATTEND Internal Medicine
DX: K57.30 Diverticulosis of large intestine without perforation or abscess without bleeding (principal); D69.3 Immune thrombocytopenic purpura; I48.20 Chronic atrial fibrillation, unspecified; D64.9 Anemia, unspecified; E03.9 Hypothyroidism, unspecified; E11.36 Type 2 diabetes mellitus with diabetic cataract; E78.5 Hyperlipidemia, unspecified; F41.9 Anxiety disorder, unspecified; G47.33 Obstructive sleep apnea (adult) (pediatric); I10 Essential (primary) hypertension; J44.9 Chronic obstructive pulmonary disease, unspecified; K21.9 Gastro-esophageal reflux disease without esophagitis; K44.9 Diaphragmatic hernia without obstruction or gangrene; K58.9 Irritable bowel syndrome, unspecified; K64.8 Other hemorrhoids; K76.0 Fatty (change of) liver, not elsewhere classified; Z79.01 Long term (current) use of anticoagulants; Z80.0 Family history of malignant neoplasm of digestive organs; Z87.19 Personal history of other diseases of the digestive system; Z90.49 Acquired absence of other specified parts of digestive tract; Z90.710 Acquired absence of both cervix and uterus; Z96.641 Presence of right artificial hip joint; Z96.653 Presence of artificial knee joint, bilateral; E66.9 Obesity, unspecified
CPT/HCPCS: 36415; 74176; 80048; 80053; 81001; 85025; 94640; 94760; J0744; J2270; J3490; J7030; G0378; J7626; J7644